=== PATIENT | female | born 1970 | race Hispanic/Latino ===

== ENCOUNTER 2017-02-12 01:43 | Emergency (ER) | payer OTHER, SELFPAY ==
[2017-02-12] MEDS ORDERED: KETOROLAC TROMETHAMINE 30MG/ML ONE (02:56)
[2017-02-12] MEDS ORDERED: DEXAMETHASONE SOD PHOSPHATE 10MG/ML 1ML VIAL ONE (02:56)
== END 2017-02-12 04:22 | disposition home or self-care (01) ==
LOC: EDH 01:43
DX: M65.842 Other synovitis and tenosynovitis, left hand (principal); Z88.1 Allergy status to other antibiotic agents
CPT/HCPCS: 96374; 96375; 99284; J1100; J1885

== ENCOUNTER 2017-02-28 18:06 | Emergency (ER) | payer OTHER, SELFPAY | END 2017-02-28 18:45 | disposition home or self-care (01) | LOC: EDH 18:06 | DX: M25.511 Pain in right shoulder (principal); G89.29 Other chronic pain; Z88.1 Allergy status to other antibiotic agents | CPT/HCPCS: 99281 ==

== ENCOUNTER 2018-02-08 19:32 | Emergency (ER) | payer OTHER, SELFPAY ==
[2018-02-08 21:24] LABS: APPEARANCE,URINE Cloudy (CLEAR); BILIRUBIN,URINE Negative (NEGATIVE); COLOR,URINE Yellow (YELLOW); GLUCOSE, URINE (UA) Negative (NEGATIVE); KETONES,URINE Negative (NEGATIVE); LEUKOCYTE ESTERASE ,URINE Moderate (NEGATIVE); NITRATE,URINE Positive (NEGATIVE); OCCULT BLOOD,URINE Negative (NEGATIVE); PROTEIN,URINE Negative (NEGATIVE); UROBILINOGEN,URINE 0.2 mg/dL (0.2-1.0)
[2018-02-08 21:28] LABS: HCG,QUAL RESULT NEGATIVE (NEGATIVE)
[2018-02-08 21:43] LABS: BACTERIA,URINE Many /HPF (None Seen); RBC,URINE None Seen /HPF (0-1)
[2018-02-08 21:44] LABS: MUCUS,URINE Few LPF (None Seen)
[2018-02-08] MEDS ORDERED: CEFTRIAXONE SODIUM 1 GM ONE (21:52)
[2018-02-08] MEDS ORDERED: LIDOCAINE HCL 1% 20 ML VIAL ONE (21:52)
[2018-02-08] MEDS ORDERED: IBUPROFEN 600 MG TABLET ONE (21:52)
[2018-02-08] MEDS ORDERED: KETOROLAC TROMETHAMINE 60 MG/2 ML VIAL ONE (23:20)
[2018-02-08] MEDS ORDERED: CYCLOBENZAPRINE HCL 10 MG TABLET ONE (23:21)
== END 2018-02-08 23:49 | disposition home or self-care (01) ==
LOC: EDH 19:32
DX: M54.16 Radiculopathy, lumbar region (principal); N39.0 Urinary tract infection, site not specified; Z88.1 Allergy status to other antibiotic agents; Z90.49 Acquired absence of other specified parts of digestive tract; Z98.51 Tubal ligation status
CPT/HCPCS: 81001; 81025; 96372 ×2; 99283; J0696; J1885

== ENCOUNTER 2018-09-26 21:44 | Emergency (ER) | payer OTHER ==
[2018-09-26] MEDS ORDERED: ACETAMINOPHEN EXTRA STRENGTH 500 MG TABLET ONE (22:20)
[2018-09-26] MEDS ORDERED: CYCLOBENZAPRINE HCL 10 MG TABLET ONE (22:21)
[2018-09-26 22:40] LABS: BILIRUBIN,URINE Negative (NEGATIVE); COLOR,URINE Yellow (YELLOW); GLUCOSE, URINE (UA) Negative (NEGATIVE); KETONES,URINE Negative (NEGATIVE); LEUKOCYTE ESTERASE ,URINE Large (NEGATIVE); NITRATE,URINE Positive (NEGATIVE); OCCULT BLOOD,URINE Small (NEGATIVE); PROTEIN,URINE POS 1+ mg/dL (NEGATIVE)
[2018-09-26 22:41] LABS: APPEARANCE,URINE CLOUDY (CLEAR)
[2018-09-26] MEDS ORDERED: LIDOCAINE HCL 2% VISCOUS 15 ML UDCUP ONE (22:50)
[2018-09-26] MEDS ORDERED: MAG HYDROX/AL HYDROX/SIMETH ES 30 ML SUSP UDCUP ONE (22:50)
[2018-09-26] MEDS ORDERED: LIDOCAINE HCL-MPF 1% 2ML VIAL ONE (22:50)
[2018-09-26] MEDS ORDERED: CEFTRIAXONE SODIUM 1 GM ONE (22:51)
[2018-09-26 23:00] LABS: BACTERIA,URINE Moderate /HPF (None Seen); SQUAMOUS EPITHELIAL CELL,UR Few /HPF (0-2); WBC,URINE 51-100 /HPF (0-1)
== END 2018-09-26 23:45 | disposition home or self-care (01) ==
LOC: EDH 21:44
DX: N39.0 Urinary tract infection, site not specified (principal); R51 Headache; Z88.1 Allergy status to other antibiotic agents; Z90.49 Acquired absence of other specified parts of digestive tract; Z98.51 Tubal ligation status
CPT/HCPCS: 81001; 81025; 87088; 96372 ×2; 99284; J0696; J3490

== ENCOUNTER 2019-07-16 12:41 | Inpatient (IN) | payer SELFPAY ==
[~2019-07-16] VITALS: Ht 149.9 cm; Wt 61.7 kg
[2019-07-16 13:17] LABS: BASOPHILS % (AUTO) 0.3 % (0.0-5.0); EOSINOPHILS % (AUTO) 0.1 % (0.0-8.0); HEMATOCRIT 39.3 % (36-48); LYMPHOCYTES % (AUTO) 7.1 % (21.0-51.0); MEAN CORPUSCULAR HEMOGLOBIN 31.9 pg (27.0-33.0); MEAN CORPUSCULAR HGB CONC 33.6 g/dL (32.0-36.0); MEAN CORPUSCULAR VOLUME 94.9 fL (79-99); MONOCYTES % (AUTO) 7.5 % (3.0-13.0); NEUTROPHILS % (AUTO) 84.5 % (40.0-77.0); PLATELET COUNT (AUTO) 223 K/uL (130-400); RED BLOOD CELL COUNT(AUTO) 4.14 MIL/uL (4.00-5.50); RED CELL DISTRIBUTION WIDTH 13.4 % (11.0-15.5); WHITE BLOOD COUNT (AUTO) 15.9 K/uL (4.8-10.8)
[2019-07-16 13:30] LABS: POTASSIUM 3.6 mmol/L (3.5-5.1)
[2019-07-16 13:32] LABS: RAPID GROUP A STREP NEGATIVE (NEGATIVE)
[2019-07-16 13:35] LABS: ALBUMIN 3.4 g/dL (3.5-5.0); BILIRUBIN,TOTAL 0.3 mg/dL (0.2-1.0); TOTAL PROTEIN, SERUM 7.8 g/dL (6.0-8.3)
[2019-07-16 13:52] LABS: APPEARANCE,URINE Cloudy (CLEAR); BILIRUBIN,URINE Negative (NEGATIVE); COLOR,URINE Yellow (YELLOW); GLUCOSE, URINE (UA) Negative (NEGATIVE); KETONES,URINE Negative (NEGATIVE); LEUKOCYTE ESTERASE ,URINE Moderate (NEGATIVE); NITRATE,URINE Negative (NEGATIVE); OCCULT BLOOD,URINE Small (NEGATIVE); PH,URINE 8.5 (5.0-8.0); PROTEIN,URINE POS 1+ mg/dL (NEGATIVE); UROBILINOGEN,URINE 0.2 mg/dL (0.2-1.0)
[2019-07-16 14:00] LABS: HCG,QUAL RESULT NEGATIVE (NEGATIVE)
[2019-07-16 14:06] LABS: BACTERIA,URINE Moderate /HPF (None Seen)
[2019-07-16] MEDS ORDERED: SODIUM CHLORIDE 0.9% 1000ML 1,000 ML IV ONE ×2 (14:09→18:44)
[2019-07-16] MEDS ORDERED: CEFTRIAXONE SODIUM 1 GM ONE (14:09)
[2019-07-16] MEDS ORDERED: IBUPROFEN 600 MG TABLET ONE (14:10)
[2019-07-16] MEDS ORDERED: SODIUM CHLORIDE 0.9% 100 ML IV ONE (14:10)
[2019-07-16] MEDS ORDERED: ACETAMINOPHEN EXTRA STRENGTH 500 MG TABLET ONE (15:17)
[2019-07-16] MEDS ORDERED: HYDRALAZINE HCL 20 MG/ML VIAL IV PRN (17:15)
[2019-07-16] MEDS ORDERED: LACTULOSE 20 GM/30 ML UDCUP PO PRN (17:15)
[2019-07-16] MEDS ORDERED: ONDANSETRON HCL 4 MG/2 ML VIAL IV PRN (17:15)
[2019-07-16] MEDS ORDERED: ZOSYN 3.375GM+NS 50ML 50 ML IV ONE (18:21)
[2019-07-16 19:02] LABS: MAGNESIUM 1.6 mg/dL (1.80-2.40); PHOSPHORUS 2.1 mg/dL (2.5-4.9)
[2019-07-16 19:49] LABS: HEMOGLOBIN A1C 5.1 % (4.0-6.0)
[2019-07-16] MEDS: ZOSYN 3.375GM+NS 50ML 50 ML IV SCH (21:00)
[2019-07-16] MEDS ORDERED: FAMOTIDINE/PF 20 MG/2 ML VIAL IV SCH (21:00)
[2019-07-16] MEDS: OSELTAMIVIR PHOSPHATE 75 MG CAP PO SCH (21:00)
[2019-07-16] MEDS ORDERED: OSELTAMIVIR PHOSPHATE 75 MG CAP ONE (21:12)
[2019-07-16 21:50] VITALS: BP 151/88
[2019-07-16] MEDS: SODIUM CHLORIDE 0.9% 1000ML 1,000 ML IV SCH ×2 (22:11→22:15)
[2019-07-16] MEDS: FAMOTIDINE/PF 20 MG/2 ML VIAL IV SCH (22:17)
[2019-07-16] MEDS: MAGNESIUM 2GM PREMIX 50ML 50 ML IV PRN (22:23)
[2019-07-16] MEDS ORDERED: NAPR-1023 PO (22:40)
[2019-07-17] VITALS: BP 147/87
[2019-07-17] MEDS ORDERED: KETOROLAC TROMETHAMINE 30MG/ML ONE (00:22)
[2019-07-17] MEDS ORDERED: KETOROLAC TROMETHAMINE 30MG/ML IV PRN (00:30)
[2019-07-17] MEDS: SODIUM CHLORIDE 0.9% 1000ML 1,000 ML IV SCH ×2 (02:50→08:11)
[2019-07-17] MEDS: ACETAMINOPHEN 325 MG TAB PO PRN ×2 (03:27→14:35)
[2019-07-17 04:00] VITALS: BP 149/84
[2019-07-17] MEDS: ZOSYN 3.375GM+NS 50ML 50 ML IV SCH ×2 (04:24→13:19)
[2019-07-17] MEDS: MAGNESIUM 2GM PREMIX 50ML 50 ML IV PRN (06:11)
[2019-07-17 07:30] VITALS: BP 141/89
[2019-07-17] MEDS: OSELTAMIVIR PHOSPHATE 75 MG CAP PO SCH ×2 (07:50→21:20)
[2019-07-17] MEDS: FAMOTIDINE/PF 20 MG/2 ML VIAL IV SCH ×2 (07:50→21:20)
[2019-07-17] MEDS: ENOXAPARIN SODIUM 40 MG/0.4 ML SYRINGE SQ SCH (07:51)
[2019-07-17 11:30] VITALS: BP 155/82
[2019-07-17] MEDS ORDERED: SODIUM CHLORIDE 0.9% 1000ML 1,000 ML IV SCH (13:15)
[2019-07-17 13:29] LABS: ALBUMIN 2.6 g/dL (3.5-5.0); BILIRUBIN,TOTAL 0.2 mg/dL (0.2-1.0); CREATININE 0.9 mg/dL (0.5-1.5); TOTAL PROTEIN, SERUM 6.4 g/dL (6.0-8.3)
[2019-07-17] MEDS ORDERED: POTASSIUM CHLORIDE 20 MEQ ERTAB PO ONE (14:09)
[2019-07-17] MEDS ORDERED: POTASSIUM CHLORIDE 20MEQ/100ML 100 ML IV PRN (14:15)
[2019-07-17] MEDS ORDERED: LIDOCAINE HCL-MPF 1% 2ML VIAL IV PRN (14:15)
[2019-07-17] MEDS ORDERED: POTASSIUM CHLORIDE 10% ELIXIR 20 MEQ/15 ML UDCUP PO PRN (14:15)
[2019-07-17] MEDS: POTASSIUM CHLORIDE 20 MEQ ERTAB PO PRN ×3 (14:35→21:20)
[2019-07-17 15:30] VITALS: BP 142/92
[2019-07-17] MEDS ORDERED: HYDROCODONE/ACETAMINOPHEN 10/325 MG TAB PO PRN (17:30)
[2019-07-17] MEDS ORDERED: HYDROMORPHONE 1 MG/1 ML AMP IVP PRN (17:30)
[2019-07-17] MEDS: MEROPENEM 1 GM VIAL IVP SCH (18:23)
--- NOTE | 2019-07-17 19:15 | NUR ---
ASSESSMENT PT RESTING QUIETLY IN ROOM WATCHING TV. CURRENTLY DENIES ANY PAIN OR DISCOMFORT. AAOX4 PLEASANT, COOPERATIVE AND FOLLOWS COMMANDS. DENIES ANY CHEST PAIN OR S.O.B. ASSESSMENT COMPLETED, SEE FLOW SHEET.
[2019-07-17 19:45] VITALS: BP 117/74
[2019-07-18] MEDS: ACETAMINOPHEN 325 MG TAB PO PRN ×2 (00:21→11:34)
[2019-07-18 00:43] VITALS: BP 103/67
[2019-07-18] MEDS: MEROPENEM 1 GM VIAL IVP SCH ×2 (01:09→09:50)
[2019-07-18 04:52] VITALS: BP 95/67
[2019-07-18 05:46] LABS: BASOPHILS % (AUTO) 0.4 % (0.0-5.0); EOSINOPHILS % (AUTO) 1.5 % (0.0-8.0); HEMATOCRIT 31.6 % (36-48); LYMPHOCYTES % (AUTO) 15.7 % (21.0-51.0); MEAN CORPUSCULAR HEMOGLOBIN 31.6 pg (27.0-33.0); MEAN CORPUSCULAR HGB CONC 32.6 g/dL (32.0-36.0); MEAN CORPUSCULAR VOLUME 96.9 fL (79-99); MONOCYTES % (AUTO) 12.2 % (3.0-13.0); NEUTROPHILS % (AUTO) 69.8 % (40.0-77.0); PLATELET COUNT (AUTO) 216 K/uL (130-400); RED BLOOD CELL COUNT(AUTO) 3.26 MIL/uL (4.00-5.50); RED CELL DISTRIBUTION WIDTH 13.6 % (11.0-15.5); WHITE BLOOD COUNT (AUTO) 10.9 K/uL (4.8-10.8)
[2019-07-18 07:30] VITALS: BP 129/84
[2019-07-18 08:42] LABS: MAGNESIUM 1.9 mg/dL (1.80-2.40); POTASSIUM 3.9 mmol/L (3.5-5.1)
[2019-07-18] MEDS: FAMOTIDINE/PF 20 MG/2 ML VIAL IV SCH (09:00)
[2019-07-18] MEDS ORDERED: FAMOTIDINE 20MG TAB 20 MG TAB PO SCH ×2 (09:00→09:02)
[2019-07-18] MEDS: MAGNESIUM 2GM PREMIX 50ML 50 ML IV PRN (09:50)
[2019-07-18] MEDS: ENOXAPARIN SODIUM 40 MG/0.4 ML SYRINGE SQ SCH (09:52)
[2019-07-18] MEDS: OSELTAMIVIR PHOSPHATE 75 MG CAP PO SCH (09:52)
[2019-07-18 12:00] VITALS: BP 145/91
[2019-07-18] MEDS ORDERED: CEFD300C3 PO (14:04)
[2019-07-18] MEDS ORDERED: OSEL75 PO (14:04)
--- NOTE | 2019-07-18 15:30 | NUR ---
PT DISCHARGED PER DR Flex BLACKBURN OUT CATHETER INTACT. VERBALIZES UNDERSTANDING OF DISCHARGE INSTRUCTIONS. PT WILL MAKE AN APPOINTMENT WITH PRIMARY MD BY CALLING HERSELF TOMORROW. VS STABLE TO PRIVATE CAR VIA WHEEL CHAIR
--- NOTE | 2019-07-18 15:49 | NUR ---
PT IS TOLERATING BEING OUT OF BED. HAS AMBULATED FROM BED TO BATHROOM, TO CHAIR BACK TO BATHROOM BACK TO BED WITH GUIDED ASSISTANCE. NO SHORTNESS OF BREATH. PLACED ON 2L NASAL CANNULA DUE TO SPOT SPO2 CHECK OF 84 Addendum: 07/18/19 at 1552 by NILA MAXWELL RN WRONG NOTE, PT NEEDS NO ASSISTANCE TO AMBULATE. ROOM AIR WITH 97%
== END 2019-07-18 15:41 | disposition home or self-care (01) | DRG 871 ==
LOC: EDH 12:41 → EDHIP 12:42 → 2DH 21:34
PROVIDERS: ADMIT Internal Medicine; ATTEND Internal Medicine
DX: A41.9 Sepsis, unspecified organism (principal); J10.00 Influenza due to other identified influenza virus with unspecified type of pneumonia; N30.00 Acute cystitis without hematuria; E86.1 Hypovolemia; B96.20 Unspecified Escherichia coli [E. coli] as the cause of diseases classified elsewhere; E87.6 Hypokalemia; G89.29 Other chronic pain; N20.0 Calculus of kidney; Z20.828 Contact with and (suspected) exposure to other viral communicable diseases; N28.1 Cyst of kidney, acquired; Z79.1 Long term (current) use of non-steroidal anti-inflammatories (NSAID); Z88.1 Allergy status to other antibiotic agents
CPT/HCPCS: 36415; 71045; 74176; 76770; 80053; 81001; 81025; 83036; 83605; 83735; 84100; 84132; 84145; 85025; 87040; 87077; 87088; 87186; 87486; 87581; 87633; 87635; 87798; 87804; 87880; G0378; J0696; J1650; J1885; J2185; J2543; J3475; J3490; J7030

== ENCOUNTER 2019-12-20 18:29 | Inpatient (IN) | payer OTHER, SELFPAY ==
[~2019-12-20] VITALS: Ht 149.9 cm; Wt 65.8 kg
[~2019-12-20 18:29] MED LIST: CEFD300C3 PO; NAPR-1023 PO; OSEL75 PO
[2019-12-20 20:03] LABS: APPEARANCE,URINE CLOUDY (CLEAR); BILIRUBIN,URINE NEGATIVE (NEGATIVE); COLOR,URINE YELLOW (YELLOW); GLUCOSE, URINE (UA) NEGATIVE (NEGATIVE); KETONES,URINE 5 mg/dL (NEGATIVE); LEUKOCYTE ESTERASE ,URINE LARGE (NEGATIVE); NITRATE,URINE POSITIVE (NEGATIVE); OCCULT BLOOD,URINE SMALL (NEGATIVE); PH,URINE 6.5 (5.0-8.0); PROTEIN,URINE NEGATIVE (NEGATIVE); UROBILINOGEN,URINE 0.2 mg/dL (0.2-1.0)
[2019-12-20 20:08] LABS: HCG,QUAL RESULT NEGATIVE (NEGATIVE)
[2019-12-20] MEDS ORDERED: ACETAMINOPHEN EXTRA STRENGTH 500 MG TABLET ONE (20:08)
[2019-12-20] MEDS ORDERED: ZOSYN 3.375GM+NS 50ML 50 ML IV ONE (20:08)
[2019-12-20 20:09] LABS: ABG BASE EXCESS -1.7 mmol/L (-2.0-3.0); ABG HCO3 17.3 mmol/L (21.0-28.0); ABG OXYGEN SATURATION 99.2 % (95.0-99.0); ABG PCO2 19 mmHg (32-45)
[2019-12-20 20:11] LABS: BACTERIA,URINE Few /HPF (None Seen); SQUAMOUS EPITHELIAL CELL,UR Few /HPF (0-2)
[2019-12-20 20:24] LABS: BASOPHILS % (AUTO) 0.4 % (0.0-5.0); EOSINOPHILS % (AUTO) 0.2 % (0.0-8.0); HEMATOCRIT 33.8 % (36-48); MEAN CORPUSCULAR HEMOGLOBIN 31.2 pg (27.0-33.0); MEAN CORPUSCULAR HGB CONC 33.7 g/dL (32.0-36.0); MEAN CORPUSCULAR VOLUME 92.6 fL (79-99); MONOCYTES % (AUTO) 7.6 % (3.0-13.0); PLATELET COUNT (AUTO) 393 K/uL (130-400); RED BLOOD CELL COUNT(AUTO) 3.65 MIL/uL (4.00-5.50); RED CELL DISTRIBUTION WIDTH 12.7 % (11.0-15.5); WHITE BLOOD COUNT (AUTO) 26.3 K/uL (4.8-10.8)
[2019-12-20 20:46] LABS: CREATININE 1.1 mg/dL (0.5-1.5); POTASSIUM 3.1 mmol/L (3.5-5.1)
[2019-12-20 20:48] LABS: B-TYPE NATRIURETIC PEPTIDE 46 pg/mL (0-100)
[2019-12-20 20:49] LABS: INR 1.03 (0.85-1.15); PARTIAL THROMBOPLASTIN TIME 29.4 SEC (26.3-35.5); PROTHROMBIN TIME 11.1 SEC (9.6-11.6)
[2019-12-20 20:51] LABS: ALBUMIN 3.4 g/dL (3.5-5.0); BILIRUBIN,TOTAL 0.6 mg/dL (0.2-1.0); TOTAL PROTEIN, SERUM 7.8 g/dL (6.0-8.3)
[2019-12-20] MEDS ORDERED: IOHEXOL-350 75 ML VIAL IV ONE (20:52)
[2019-12-20] MEDS ORDERED: ONDANSETRON HCL 4 MG/2 ML VIAL ONE (22:21)
[2019-12-20] MEDS ORDERED: MORPHINE SULFATE 4 MG/1ML SYG ONE (22:21)
[2019-12-20] MEDS ORDERED: ONDANSETRON HCL 4 MG/2 ML VIAL IV PRN (23:15)
[2019-12-20] MEDS ORDERED: MORPHINE SULFATE 4 MG/1ML SYG IV PRN (23:15)
[2019-12-20] MEDS ORDERED: HYDRALAZINE HCL 20 MG/ML VIAL IV PRN (23:15)
[2019-12-20] MEDS ORDERED: ACETAMINOPHEN 325 MG TAB PO PRN ×2 (23:15)
[2019-12-20] MEDS ORDERED: LACTULOSE 20 GM/30 ML UDCUP PO PRN (23:15)
[2019-12-20] MEDS: SODIUM CHLORIDE 0.9% 1000ML 1,000 ML IV SCH (23:15)
[2019-12-20] MEDS ORDERED: LIDOCAINE HCL-MPF 1% 2ML VIAL IV PRN (23:45)
[2019-12-20] MEDS ORDERED: POTASSIUM CHLORIDE 10MEQ/100ML 100 ML IV PRN (23:45)
[2019-12-21] MEDS: ZOSYN 3.375GM+NS 50ML 50 ML IV SCH ×3 (05:00→20:19)
[2019-12-21 05:33] LABS: BASOPHILS % (AUTO) 0.4 % (0.0-5.0); EOSINOPHILS % (AUTO) 0.5 % (0.0-8.0); HEMATOCRIT 30.8 % (36-48); LYMPHOCYTES % (AUTO) 7.4 % (21.0-51.0); MEAN CORPUSCULAR HEMOGLOBIN 31.3 pg (27.0-33.0); MEAN CORPUSCULAR HGB CONC 33.4 g/dL (32.0-36.0); MEAN CORPUSCULAR VOLUME 93.6 fL (79-99); MONOCYTES % (AUTO) 7.5 % (3.0-13.0); NEUTROPHILS % (AUTO) 83.6 % (40.0-77.0); PLATELET COUNT (AUTO) 346 K/uL (130-400); RED BLOOD CELL COUNT(AUTO) 3.29 MIL/uL (4.00-5.50); RED CELL DISTRIBUTION WIDTH 12.7 % (11.0-15.5); WHITE BLOOD COUNT (AUTO) 21.8 K/uL (4.8-10.8)
[2019-12-21 05:51] LABS: CREATININE 0.9 mg/dL (0.5-1.5); POTASSIUM 3.1 mmol/L (3.5-5.1)
[2019-12-21] MEDS ORDERED: ZOSYN 3.375GM+NS 50ML 50 ML IV ONE (07:04)
[2019-12-21] MEDS ORDERED: LIDOCAINE HCL-MPF 1% 2ML VIAL ONE ×2 (07:39→12:54)
[2019-12-21] MEDS ORDERED: POTASSIUM CHLORIDE 10MEQ/100ML 100 ML IV ONE ×2 (07:39→12:54)
[2019-12-21] MEDS ORDERED: FAMOTIDINE/PF 20 MG/2 ML VIAL IV ONE (07:51)
[2019-12-21] MEDS ORDERED: MORPHINE SULFATE 4 MG/1ML SYG ONE ×2 (08:13→13:24)
[2019-12-21] MEDS ORDERED: ONDANSETRON HCL 4 MG/2 ML VIAL ONE (08:13)
[2019-12-21] MEDS ORDERED: SODIUM CHLORIDE 0.9% 1000ML 1,000 ML IV ONE (08:41)
[2019-12-21] MEDS: FAMOTIDINE/PF 20 MG/2 ML VIAL IV SCH ×2 (09:00→20:19)
[2019-12-21] MEDS ORDERED: BISACODYL 10 MG SUPP.RECT RC SCH ×2 (09:15→10:30)
[2019-12-21] MEDS: SODIUM CHLORIDE 0.9% 1000ML 1,000 ML IV SCH ×2 (09:15→19:15)
[2019-12-21] MEDS ORDERED: PEG 3350/NA SULF,BICARB,CL/KCL 4000 ML SOLN ONE (15:35)
[2019-12-21 16:00] VITALS: BP 136/77
--- NOTE | 2019-12-21 16:07 | NUR ---
YUE NOTE/IA UNABLE TO MET WITH PATIENT IN ROOM, NEXT OF KIN CALLED, SHAI CARRILLO. PER DAUGHTER, PATIENT LIVES WITH HER 2 ADULT DAUGHTERS AND 1 ADULT NEPHEW, IS INDEPENDENT WITH ADLS, NO USE OF DME, DRIVES AND FEELS SAFE FOR PATIENT TO RETURN HOME ONCE DISCHARGED. Addendum: 12/21/19 at 1609 by YAEL FALL RN CM Amended: Links added.
[2019-12-21 18:15] LABS: CREATININE 0.8 mg/dL (0.5-1.5); POTASSIUM 3.3 mmol/L (3.5-5.1)
[2019-12-21 20:00] VITALS: BP 123/75
[2019-12-21] MEDS: MORPHINE SULFATE 4 MG/1ML SYG IV PRN (20:20)
[2019-12-22] VITALS: BP 107/68
[2019-12-22] MEDS: MORPHINE SULFATE 4 MG/1ML SYG IV PRN ×4 (01:44→20:18)
[2019-12-22 04:00] VITALS: BP 108/59
[2019-12-22] MEDS ORDERED: KETOROLAC TROMETHAMINE 30MG/ML ONE ×2 (05:13→23:25)
[2019-12-22] MEDS: ZOSYN 3.375GM+NS 50ML 50 ML IV SCH ×3 (05:14→20:17)
[2019-12-22] MEDS: SODIUM CHLORIDE 0.9% 1000ML 1,000 ML IV SCH ×2 (05:15→15:15)
[2019-12-22] MEDS ORDERED: IOHEXOL-350 75 ML VIAL IV ONE (06:56)
[2019-12-22 08:30] VITALS: BP 104/68
[2019-12-22] MEDS ORDERED: POTASSIUM CHLORIDE 20MEQ/100ML 100 ML IV PRN ×2 (09:15)
[2019-12-22] MEDS ORDERED: POTASSIUM CHLORIDE 10% ELIXIR 20 MEQ/15 ML UDCUP PO PRN (09:15)
[2019-12-22 09:34] LABS: BASOPHILS % (AUTO) 0.6 % (0.0-5.0); EOSINOPHILS % (AUTO) 1.1 % (0.0-8.0); HEMATOCRIT 29.4 % (36-48); LYMPHOCYTES % (AUTO) 14.7 % (21.0-51.0); MEAN CORPUSCULAR HEMOGLOBIN 31.6 pg (27.0-33.0); MEAN CORPUSCULAR HGB CONC 32.3 g/dL (32.0-36.0); MEAN CORPUSCULAR VOLUME 97.7 fL (79-99); MONOCYTES % (AUTO) 10.5 % (3.0-13.0); NEUTROPHILS % (AUTO) 72.7 % (40.0-77.0); PLATELET COUNT (AUTO) 271 K/uL (130-400); RED BLOOD CELL COUNT(AUTO) 3.01 MIL/uL (4.00-5.50); RED CELL DISTRIBUTION WIDTH 13.2 % (11.0-15.5); WHITE BLOOD COUNT (AUTO) 11.5 K/uL (4.8-10.8)
[2019-12-22 09:57] LABS: ALBUMIN 2.6 g/dL (3.5-5.0); BILIRUBIN,TOTAL 0.4 mg/dL (0.2-1.0); CREATININE 0.9 mg/dL (0.5-1.5); POTASSIUM 3.3 mmol/L (3.5-5.1); TOTAL PROTEIN, SERUM 6.5 g/dL (6.0-8.3)
[2019-12-22] MEDS: LACTULOSE 20 GM/30 ML UDCUP PO SCH ×3 (11:07→22:44)
[2019-12-22] MEDS: POTASSIUM CHLORIDE 20 MEQ ERTAB PO PRN ×3 (11:08→16:21)
[2019-12-22] MEDS: FAMOTIDINE/PF 20 MG/2 ML VIAL IV SCH ×2 (11:09→20:17)
[2019-12-22 11:51] VITALS: BP 117/73
--- NOTE | 2019-12-22 12:39 | NUR ---
IVP w/wo tomograms results show 7.5 mm stone in the proximal rt ureter w moderate to high grade degree of obstruction stone has not advanced compared to previous CT. Called Dr. Sierra's office to report, rec'd instructions to fax. Results faxed to Dr. Sierra's office, attn Livia.
--- NOTE | 2019-12-22 13:30 | NUR ---
Called to cardiac cath lab manager to notify of order for nephrostomy tube placement. Per Minal, radiologist cannot perform until tomorrow am due to pt not being NPO status. Scheduled with central scheduling for tomorrow am, NPO orders placed.
--- NOTE | 2019-12-22 15:06 | NUR ---
Notified Dr. Sierra's office staff member Livia that per cardiac cath lab technologist, nephrostomy tube will not be done until am, she will pass message to Dr. Sierra.
[2019-12-22 17:12] VITALS: BP 111/71
[2019-12-22 20:00] VITALS: BP 130/88
[2019-12-23] VITALS (12 sets, daily range): BP systolic 38–147; BP diastolic 63–88
[2019-12-23] MEDS: SODIUM CHLORIDE 0.9% 1000ML 1,000 ML IV SCH ×3 (01:15→20:54)
[2019-12-23 04:53] LABS: BASOPHILS % (AUTO) 0.7 % (0.0-5.0); EOSINOPHILS % (AUTO) 3.5 % (0.0-8.0); HEMATOCRIT 28.5 % (36-48); LYMPHOCYTES % (AUTO) 22.2 % (21.0-51.0); MEAN CORPUSCULAR HEMOGLOBIN 30.7 pg (27.0-33.0); MEAN CORPUSCULAR HGB CONC 31.9 g/dL (32.0-36.0); MEAN CORPUSCULAR VOLUME 96.3 fL (79-99); MONOCYTES % (AUTO) 11.4 % (3.0-13.0); NEUTROPHILS % (AUTO) 61.9 % (40.0-77.0); PLATELET COUNT (AUTO) 302 K/uL (130-400); RED BLOOD CELL COUNT(AUTO) 2.96 MIL/uL (4.00-5.50); RED CELL DISTRIBUTION WIDTH 12.9 % (11.0-15.5); WHITE BLOOD COUNT (AUTO) 8.8 K/uL (4.8-10.8)
[2019-12-23] MEDS: LACTULOSE 20 GM/30 ML UDCUP PO SCH ×4 (05:00→23:00)
[2019-12-23 05:13] LABS: ALBUMIN 2.5 g/dL (3.5-5.0); BILIRUBIN,TOTAL 0.3 mg/dL (0.2-1.0); CREATININE 0.8 mg/dL (0.5-1.5); POTASSIUM 3.8 mmol/L (3.5-5.1); TOTAL PROTEIN, SERUM 6.4 g/dL (6.0-8.3)
[2019-12-23] MEDS: ZOSYN 3.375GM+NS 50ML 50 ML IV SCH ×3 (07:02→20:54)
[2019-12-23] MEDS: FAMOTIDINE/PF 20 MG/2 ML VIAL IV SCH ×2 (09:40→20:54)
[2019-12-23] MEDS: MORPHINE SULFATE 4 MG/1ML SYG IV PRN ×3 (09:41→20:54)
[2019-12-23] MEDS ORDERED: LIDOCAINE HCL 1% MDV 50ML VIAL ONE (15:17)
[2019-12-23] MEDS ORDERED: IODIXANOL 320 MG/ML 100 ML VIAL ONE (16:01)
[2019-12-23] MEDS ORDERED: FENTANYL CITRATE PF 50 MCG/1 ML 2ML VIAL ONE (16:12)
[2019-12-23] MEDS ORDERED: MIDAZOLAM HCL 1 MG/ML 2ML VIAL ONE (16:12)
--- NOTE | 2019-12-23 17:06 | NUR ---
STATUS POST PROCEDURE. DRESSING ON RT BACK CLEAN AND INTACT TO DRAIN . NO SIGNS OF BLEEDING . CONT ON POST OP VITALS
[2019-12-23] MEDS: KETOROLAC TROMETHAMINE 15MG/ML IV PRN (17:49)
[2019-12-24] MEDS: MORPHINE SULFATE 4 MG/1ML SYG IV PRN ×3 (02:37→19:49)
[2019-12-24 03:57] VITALS: BP 108/73
[2019-12-24] MEDS: ZOSYN 3.375GM+NS 50ML 50 ML IV SCH ×3 (04:51→19:53)
[2019-12-24 04:58] LABS: BASOPHILS % (AUTO) 0.9 % (0.0-5.0); EOSINOPHILS % (AUTO) 3.4 % (0.0-8.0); HEMATOCRIT 28.1 % (36-48); LYMPHOCYTES % (AUTO) 18.9 % (21.0-51.0); MEAN CORPUSCULAR HEMOGLOBIN 31.5 pg (27.0-33.0); MEAN CORPUSCULAR HGB CONC 33.1 g/dL (32.0-36.0); MEAN CORPUSCULAR VOLUME 95.3 fL (79-99); MONOCYTES % (AUTO) 8.7 % (3.0-13.0); NEUTROPHILS % (AUTO) 67.7 % (40.0-77.0); PLATELET COUNT (AUTO) 305 K/uL (130-400); RED BLOOD CELL COUNT(AUTO) 2.95 MIL/uL (4.00-5.50); RED CELL DISTRIBUTION WIDTH 12.9 % (11.0-15.5); WHITE BLOOD COUNT (AUTO) 7.9 K/uL (4.8-10.8)
[2019-12-24] MEDS: LACTULOSE 20 GM/30 ML UDCUP PO SCH ×4 (05:00→22:12)
[2019-12-24 05:18] LABS: ALBUMIN 2.4 g/dL (3.5-5.0); BILIRUBIN,TOTAL 0.3 mg/dL (0.2-1.0); CREATININE 0.7 mg/dL (0.5-1.5); POTASSIUM 3.5 mmol/L (3.5-5.1); TOTAL PROTEIN, SERUM 6.3 g/dL (6.0-8.3)
[2019-12-24] MEDS: SODIUM CHLORIDE 0.9% 1000ML 1,000 ML IV SCH ×2 (07:15→19:54)
[2019-12-24 08:00] VITALS: BP 130/74
[2019-12-24] MEDS: FAMOTIDINE/PF 20 MG/2 ML VIAL IV SCH ×2 (08:39→19:49)
[2019-12-24 11:46] VITALS: BP 106/81
[2019-12-24] MEDS: KETOROLAC TROMETHAMINE 15MG/ML IV PRN (13:01)
[2019-12-24 16:00] VITALS: BP 159/87
[2019-12-24 19:40] VITALS: BP 130/80
[2019-12-24 23:45] VITALS: BP 120/76
[2019-12-25] MEDS: MORPHINE SULFATE 4 MG/1ML SYG IV PRN (01:08)
[2019-12-25 04:00] VITALS: BP 118/80
[2019-12-25] MEDS: SODIUM CHLORIDE 0.9% 1000ML 1,000 ML IV SCH (04:07)
[2019-12-25] MEDS: ZOSYN 3.375GM+NS 50ML 50 ML IV SCH (04:07)
[2019-12-25] MEDS: KETOROLAC TROMETHAMINE 15MG/ML IV PRN ×2 (04:18→10:56)
[2019-12-25] MEDS: LACTULOSE 20 GM/30 ML UDCUP PO SCH ×2 (04:18→10:58)
[2019-12-25 05:48] LABS: BASOPHILS % (AUTO) 0.8 % (0.0-5.0); EOSINOPHILS % (AUTO) 3.8 % (0.0-8.0); HEMATOCRIT 30.7 % (36-48); LYMPHOCYTES % (AUTO) 24.4 % (21.0-51.0); MEAN CORPUSCULAR HEMOGLOBIN 31.1 pg (27.0-33.0); MEAN CORPUSCULAR HGB CONC 32.9 g/dL (32.0-36.0); MEAN CORPUSCULAR VOLUME 94.5 fL (79-99); NEUTROPHILS % (AUTO) 57.7 % (40.0-77.0); PLATELET COUNT (AUTO) 366 K/uL (130-400); RED BLOOD CELL COUNT(AUTO) 3.25 MIL/uL (4.00-5.50); RED CELL DISTRIBUTION WIDTH 12.6 % (11.0-15.5); WHITE BLOOD COUNT (AUTO) 7.1 K/uL (4.8-10.8)
[2019-12-25 06:13] LABS: ALBUMIN 2.7 g/dL (3.5-5.0); BILIRUBIN,TOTAL 0.2 mg/dL (0.2-1.0); CREATININE 0.9 mg/dL (0.5-1.5); POTASSIUM 3.5 mmol/L (3.5-5.1); TOTAL PROTEIN, SERUM 6.9 g/dL (6.0-8.3)
[2019-12-25 08:26] VITALS: BP 101/65
[2019-12-25] MEDS: FAMOTIDINE/PF 20 MG/2 ML VIAL IV SCH (09:04)
[2019-12-25 11:07] VITALS: BP 109/69
[2019-12-25] MEDS ORDERED: KETO10TA2 PO (12:23)
[2019-12-25] MEDS ORDERED: LEVO750T46 PO (12:24)
--- NOTE | 2019-12-25 14:48 | NUR ---
PT AND DAUGHTER STATED UNDERSTANDING OF ALL D/C INSTRUCTIONS ON AFTER CARE FOR A NEPHROSTOMY TUBE PLACEMENT AND HAVINB HYDRONEPHROSIS--INCLUDING--HOW TO EMPTY DRAIN, SIGNS AND SYMPTOMS OF INFECTION TO WATCH FOR AND REPORT TO MD; I DID NOT GIVE PT A LIST OF LOCAL FAMILY PHYSICIANS BECAUSE SHE STATED SHE ALREADY HAD A DR. DR BETSY SUMMERS. IV ACCESS REMOVED.
== END 2019-12-25 15:00 | disposition home or self-care (01) | DRG 690 ==
LOC: EDH 18:29 → EDHIP 18:30 → 3CH 12-21 15:03
PROVIDERS: ADMIT Internal Medicine; ATTEND Internal Medicine
PROC: 0T9030Z Drainage of Right Kidney with Drainage Device, Percutaneous Approach (ICD-10-PCS; principal; 2019-12-23)
DX: N13.6 Pyonephrosis (principal); E87.3 Alkalosis; Z16.24 Resistance to multiple antibiotics; K56.609 Unspecified intestinal obstruction, unspecified as to partial versus complete obstruction; K52.9 Noninfective gastroenteritis and colitis, unspecified; E87.6 Hypokalemia; D64.9 Anemia, unspecified; K59.00 Constipation, unspecified; K76.0 Fatty (change of) liver, not elsewhere classified; M06.9 Rheumatoid arthritis, unspecified; R53.81 Other malaise; Z82.3 Family history of stroke; Z83.3 Family history of diabetes mellitus; Z82.49 Family history of ischemic heart disease and other diseases of the circulatory system; Z88.1 Allergy status to other antibiotic agents
CPT/HCPCS: 10030; 36415; 36600; 50432; 71045; 74018; 74177; 74400; 76775; 80048; 80053; 81001; 81025; 82550; 82803; 83605; 83690; 83735; 83880; 83883; 83970; 84145; 84484; 85025; 85610; 85730; 86334; 87040; 87077; 87088; 87186; 93005; 99156; 99157; C1769; C1894; G0378; J1644; J1885; J2250; J2270; J2405; J2543; J3010; J3490; J7030; Q9967

== ENCOUNTER 2020-01-12 14:56 | Emergency (ER) | payer OTHER ==
[~2020-01-12 14:56] MED LIST changes: -CEFD300C3 PO; +KETO10TA2 PO; +LEVO750T46 PO; -NAPR-1023 PO; -OSEL75 PO
[2020-01-12 15:34] LABS: EOSINOPHILS % (AUTO) 4.2 % (0.0-8.0); HEMATOCRIT 35.4 % (36-48); LYMPHOCYTES % (AUTO) 26.2 % (21.0-51.0); MEAN CORPUSCULAR HEMOGLOBIN 30.6 pg (27.0-33.0); MEAN CORPUSCULAR HGB CONC 32.2 g/dL (32.0-36.0); MEAN CORPUSCULAR VOLUME 95.2 fL (79-99); MONOCYTES % (AUTO) 5.7 % (3.0-13.0); NEUTROPHILS % (AUTO) 62.8 % (40.0-77.0); PLATELET COUNT (AUTO) 323 K/uL (130-400); RED BLOOD CELL COUNT(AUTO) 3.72 MIL/uL (4.00-5.50); RED CELL DISTRIBUTION WIDTH 12.8 % (11.0-15.5); WHITE BLOOD COUNT (AUTO) 8.4 K/uL (4.8-10.8)
[2020-01-12 15:53] LABS: ALBUMIN 3.6 g/dL (3.5-5.0); BILIRUBIN,TOTAL 0.2 mg/dL (0.2-1.0); INR 0.99 (0.85-1.15); PARTIAL THROMBOPLASTIN TIME 26.8 SEC (26.3-35.5); PROTHROMBIN TIME 10.7 SEC (9.6-11.6); TOTAL PROTEIN, SERUM 7.5 g/dL (6.0-8.3)
[2020-01-12 15:56] LABS: APPEARANCE,URINE Clear (CLEAR); BILIRUBIN,URINE Negative (NEGATIVE); COLOR,URINE Yellow (YELLOW); GLUCOSE, URINE (UA) Negative (NEGATIVE); KETONES,URINE Negative (NEGATIVE); LEUKOCYTE ESTERASE ,URINE Large (NEGATIVE); NITRATE,URINE Negative (NEGATIVE); OCCULT BLOOD,URINE Trace (NEGATIVE); PROTEIN,URINE Negative (NEGATIVE); UROBILINOGEN,URINE 0.2 mg/dL (0.2-1.0)
[2020-01-12 16:09] LABS: BACTERIA,URINE Rare /HPF (None Seen); SQUAMOUS EPITHELIAL CELL,UR Few /HPF (0-2)
[2020-01-12 16:10] LABS: TRANSITIONAL EPI CELLS,URINE Few /HPF (None Seen)
[2020-01-12] MEDS ORDERED: KETOROLAC TROMETHAMINE 30MG/ML ONE (18:15)
== END 2020-01-12 19:12 | disposition home or self-care (01) ==
LOC: EDH 14:56
DX: T83.84XA Pain due to genitourinary prosthetic devices, implants and grafts, initial encounter (principal); N20.1 Calculus of ureter; Z79.899 Other long term (current) drug therapy; Z88.1 Allergy status to other antibiotic agents
CPT/HCPCS: 36415; 74176; 80053; 81001; 85025; 85610; 85730; 87088; 96372; 99284; J1885

== ENCOUNTER 2020-02-08 12:22 | Day surgery (SDC) | payer MEDICAID ==
[2020-02-02 14:48] LABS: HEMATOCRIT 33.9 % (36-48); MEAN CORPUSCULAR HEMOGLOBIN 30.5 pg (27.0-33.0); MEAN CORPUSCULAR HGB CONC 32.4 g/dL (32.0-36.0); MEAN CORPUSCULAR VOLUME 93.9 fL (79-99); RED BLOOD CELL COUNT(AUTO) 3.61 MIL/uL (4.00-5.50); RED CELL DISTRIBUTION WIDTH 13.1 % (11.0-15.5); WHITE BLOOD COUNT (AUTO) 7.6 K/uL (4.8-10.8)
[2020-02-02 15:06] LABS: INR 1.02 (0.85-1.15); PROTHROMBIN TIME 10.9 SEC (9.6-11.6)
[2020-02-02 15:07] LABS: ALBUMIN 3.5 g/dL (3.5-5.0); BILIRUBIN,TOTAL 0.3 mg/dL (0.2-1.0); CREATININE 0.9 mg/dL (0.5-1.5); POTASSIUM 3.4 mmol/L (3.5-5.1); TOTAL PROTEIN, SERUM 7.4 g/dL (6.0-8.3)
[2020-02-02 15:08] LABS: PARTIAL THROMBOPLASTIN TIME 26.5 SEC (26.3-35.5)
[2020-02-02 15:11] LABS: BILIRUBIN,URINE Negative (NEGATIVE); COLOR,URINE Yellow (YELLOW); GLUCOSE, URINE (UA) Negative (NEGATIVE); KETONES,URINE Negative (NEGATIVE); LEUKOCYTE ESTERASE ,URINE Large (NEGATIVE); NITRATE,URINE Negative (NEGATIVE); OCCULT BLOOD,URINE Large (NEGATIVE); PH,URINE 6.5 (5.0-8.0); PROTEIN,URINE POS 2+ mg/dL (NEGATIVE); UROBILINOGEN,URINE 0.2 mg/dL (0.2-1.0)
[2020-02-02 15:32] LABS: APPEARANCE,URINE CLOUDY (CLEAR)
[2020-02-02 16:41] LABS: BACTERIA,URINE Few /HPF (None Seen); YEAST,URINE BUDDING Few /HPF (None Seen)
[2020-02-02 16:42] LABS: CALCIUM OXALATE CRYSTALS,UR Few /LPF (None Seen)
[2020-02-02 16:44] LABS: CALCIUM PHOSPHATE CRYSTALS,UR Few /LPF (None Seen); SQUAMOUS EPITHELIAL CELL,UR Rare /HPF (0-2)
[2020-02-07 10:21] VITALS: BP 133/77
[2020-02-08] VITALS (14 sets, daily range): BP systolic 108–176; BP diastolic 80–119
[~2020-02-08] VITALS: Ht 149.9 cm; Wt 60.4 kg
[~2020-02-08 12:22] MED LIST changes: +ACET1TAB25 PO; +IBUP-2077 PO; -KETO10TA2 PO; +LACTATED RINGERS 1000ML 1,000 ML IV SCH; -LEVO750T46 PO; +OXYB5TAB15 PO; +ZOSYN 3.375GM+NS 50ML 50 ML IV SCH; +ZOSYN IV
[2020-02-08] MEDS ORDERED: SUCCINYLCHOLINE 200MG/10ML SYR ONE (13:35)
[2020-02-08] MEDS ORDERED: LIDOCAINE PF 2% 5ML ABBOJECT ONE (13:35)
[2020-02-08] MEDS ORDERED: ROCURONIUM 10MG/1ML SYR 10 MG/ML ML ONE (13:36)
[2020-02-08] MEDS ORDERED: PROPOFOL 10 MG/ML 20ML VIAL IV ONE ×2 (13:36→16:03)
[2020-02-08] MEDS ORDERED: FENTANYL CITRATE PF 50 MCG/1 ML 2ML VIAL ONE ×2 (13:36→16:07)
[2020-02-08] MEDS ORDERED: ZOSY3375FZ IV (13:45)
[2020-02-08] MEDS ORDERED: MIDAZOLAM HCL 1 MG/ML 2ML VIAL ONE (14:19)
[2020-02-08] MEDS ORDERED: DEXAMETHASONE SOD PHOSPHATE 10MG/ML 1ML VIAL ONE (15:38)
[2020-02-08] MEDS ORDERED: MEPERIDINE-PF 25 MG/ML SYG ONE (16:55)
[2020-02-08] MEDS ORDERED: KETOROLAC TROMETHAMINE 30MG/ML ONE (17:05)
== END 2020-02-08 18:23 | disposition home or self-care (01) ==
LOC: DAH 12:22
PROVIDERS: ATTEND Urology
DX: N20.2 Calculus of kidney with calculus of ureter (principal); Z20.828 Contact with and (suspected) exposure to other viral communicable diseases; Z88.8 Allergy status to other drugs, medicaments and biological substances; Z88.2 Allergy status to sulfonamides; Z90.49 Acquired absence of other specified parts of digestive tract; Z98.51 Tubal ligation status; Z98.890 Other specified postprocedural states; Z79.01 Long term (current) use of anticoagulants; Z79.899 Other long term (current) drug therapy
CPT/HCPCS: 36415; 50590; 71046; 74018; 76100; 80053; 81001; 85027; 85610; 85730; 87088; 93005; A4215; A4221; A4222; A4223 ×3; A4600; A4663; C9803; J0330; J1100; J1885; J2001; J2175; J2250; J2704 ×2; J3010 ×2; J7120 ×2; U0003; J2543

== ENCOUNTER 2020-02-16 13:37 | Inpatient (IN) | payer MEDICAID ==
[~2020-02-16] VITALS: Ht 149.9 cm; Wt 60.4 kg
[~2020-02-16 13:37] MED LIST changes: -LACTATED RINGERS 1000ML 1,000 ML IV SCH; +ZOSY3375FZ IV; -ZOSYN 3.375GM+NS 50ML 50 ML IV SCH; -ZOSYN IV
[2020-02-16] MEDS ORDERED: CEFTRIAXONE 1G VIAL ONE (14:22)
[2020-02-16] MEDS ORDERED: KETOROLAC 30MG VIAL (30MG/ML) ONE (14:24)
[2020-02-16] MEDS ORDERED: ACETAMINOPHEN 325 MG TAB ONE (14:24)
[2020-02-16] MEDS ORDERED: MORPHINE 4 MG SYG ONE (14:24)
[2020-02-16] MEDS ORDERED: 0.9%NACL 50ML 50 ML IV ONE (14:25)
[2020-02-16 14:35] LABS: BASOPHILS % (AUTO) 0.7 % (0.0-5.0); EOSINOPHILS % (AUTO) 3.3 % (0.0-8.0); HEMATOCRIT 34.6 % (36-48); LYMPHOCYTES % (AUTO) 10.1 % (21.0-51.0); MEAN CORPUSCULAR HGB CONC 34.4 g/dL (32.0-36.0); MEAN CORPUSCULAR VOLUME 90.1 fL (79-99); MONOCYTES % (AUTO) 6.8 % (3.0-13.0); NEUTROPHILS % (AUTO) 78.8 % (40.0-77.0); PLATELET COUNT (AUTO) 274 K/uL (130-400); RED BLOOD CELL COUNT(AUTO) 3.84 MIL/uL (4.00-5.50); RED CELL DISTRIBUTION WIDTH 12.8 % (11.0-15.5); WHITE BLOOD COUNT (AUTO) 13.5 K/uL (4.8-10.8)
[2020-02-16] MEDS ORDERED: 0.9%NACL 1000ML 1,000 ML IV ONE ×2 (14:42→18:27)
[2020-02-16] MEDS ORDERED: ONDANSETRON 4MG INJ ONE ×2 (14:43→22:06)
[2020-02-16 15:02] LABS: ALBUMIN 3.5 g/dL (3.5-5.0); BILIRUBIN,TOTAL 0.2 mg/dL (0.2-1.0); CREATININE 0.8 mg/dL (0.5-1.5); TOTAL PROTEIN, SERUM 7.1 g/dL (6.0-8.3)
[2020-02-16 15:09] LABS: POTASSIUM 2.9 mmol/L (3.5-5.1)
[2020-02-16 17:25] LABS: APPEARANCE,URINE Clear (CLEAR); BILIRUBIN,URINE Negative (NEGATIVE); COLOR,URINE Yellow (YELLOW); GLUCOSE, URINE (UA) Negative (NEGATIVE); KETONES,URINE Negative (NEGATIVE); LEUKOCYTE ESTERASE ,URINE Moderate (NEGATIVE); NITRATE,URINE Negative (NEGATIVE); OCCULT BLOOD,URINE Moderate (NEGATIVE); PROTEIN,URINE Negative (NEGATIVE); UROBILINOGEN,URINE 0.2 mg/dL (0.2-1.0)
[2020-02-16 17:29] LABS: HCG,QUAL RESULT NEGATIVE (NEGATIVE)
[2020-02-16 17:41] LABS: BACTERIA,URINE Few /HPF (None Seen)
[2020-02-16 17:42] LABS: SQUAMOUS EPITHELIAL CELL,UR None Seen /HPF (0-2)
[2020-02-16] MEDS ORDERED: ACETAMINOPHEN 325 MG TAB PO PRN (18:15)
[2020-02-16] MEDS ORDERED: CEFTRIAXONE 1G VIAL IVP SCH (18:15)
[2020-02-16] MEDS: 0.9%NACL 1000ML 1,000 ML IV SCH (18:15)
[2020-02-16] MEDS ORDERED: MORPHINE 2 MG SYG ONE ×2 (18:28→22:07)
[2020-02-16] MEDS ORDERED: FAMOTIDINE 20MG VIAL IV ONE (20:50)
[2020-02-16] MEDS: FAMOTIDINE 20MG TAB PO SCH (21:00)
[2020-02-17] VITALS (11 sets, daily range): BP systolic 119–168; BP diastolic 79–99
[2020-02-17] MEDS ORDERED: MORPHINE 2 MG SYG ONE (03:36)
[2020-02-17] MEDS ORDERED: ONDANSETRON 4MG INJ ONE (03:36)
[2020-02-17 06:24] LABS: BASOPHILS % (AUTO) 0.5 % (0.0-5.0); HEMATOCRIT 31.1 % (36-48); LYMPHOCYTES % (AUTO) 9.1 % (21.0-51.0); MEAN CORPUSCULAR HEMOGLOBIN 30.6 pg (27.0-33.0); MEAN CORPUSCULAR HGB CONC 33.8 g/dL (32.0-36.0); MEAN CORPUSCULAR VOLUME 90.7 fL (79-99); MONOCYTES % (AUTO) 7.5 % (3.0-13.0); NEUTROPHILS % (AUTO) 81.5 % (40.0-77.0); PLATELET COUNT (AUTO) 215 K/uL (130-400); RED BLOOD CELL COUNT(AUTO) 3.43 MIL/uL (4.00-5.50); RED CELL DISTRIBUTION WIDTH 12.9 % (11.0-15.5); WHITE BLOOD COUNT (AUTO) 15.7 K/uL (4.8-10.8)
[2020-02-17 06:37] LABS: CREATININE 1.3 mg/dL (0.5-1.5)
[2020-02-17 06:45] LABS: POTASSIUM 2.9 mmol/L (3.5-5.1)
[2020-02-17] MEDS: 0.9%NACL 1000ML 1,000 ML IV SCH (07:35)
[2020-02-17] MEDS: MORPHINE 2 MG SYG IVP PRN ×3 (08:40→21:20)
[2020-02-17] MEDS: FAMOTIDINE 20MG TAB PO SCH ×2 (08:41→20:56)
[2020-02-17] MEDS ORDERED: POTASSIUM CHLORIDE 10% ELIXIR 20 MEQ/15 ML UDCUP PO PRN ×2 (12:00→12:15)
[2020-02-17] MEDS ORDERED: POTASSIUM CHLORIDE 20MEQ/100ML 100 ML IV PRN ×2 (12:00→12:15)
[2020-02-17] MEDS ORDERED: KCL 20 MEQ ERTAB PO PRN (12:15)
[2020-02-17] MEDS: MEROPENEM 1 GM VIAL IVP SCH ×2 (12:40→20:56)
[2020-02-17] MEDS: LIDOCAINE HCL-MPF 1% 2ML VIAL IV PRN (12:44)
[2020-02-17] MEDS: POTASSIUM CHLORIDE 20MEQ/100ML 100 ML IV PRN ×2 (12:44→20:57)
[2020-02-17] MEDS: KCL 20 MEQ ERTAB PO PRN ×2 (12:45→18:23)
[2020-02-17 14:33] LABS: INR 1.2 (0.85-1.15); PROTHROMBIN TIME 12.6 SEC (9.6-11.6)
[2020-02-17 14:34] LABS: PARTIAL THROMBOPLASTIN TIME 32.8 SEC (26.3-35.5)
[2020-02-17] MEDS ORDERED: IODIXANOL 320 MG/ML 100 ML VIAL ONE (14:37)
[2020-02-17] MEDS ORDERED: LIDOCAINE HCL 1% MDV 50ML VIAL ONE (14:38)
[2020-02-17] MEDS ORDERED: MIDAZOLAM HCL 1 MG/ML 2ML VIAL ONE (15:01)
[2020-02-17] MEDS ORDERED: FENTANYL CITRATE PF 50 MCG/1 ML 2ML VIAL ONE (15:01)
[2020-02-17] MEDS ORDERED: VANCOMYCIN PROTOCOL PER PHARMACY IV SCH (19:45)
[2020-02-17] MEDS: VANCOMYCIN 1G/250ML KIT 250 ML IV SCH (20:57)
[2020-02-18] VITALS (7 sets, daily range): BP systolic 98–136; BP diastolic 62–86
[2020-02-18] MEDS: MAGNESIUM 2GM PREMIX 50ML 50 ML IV PRN (00:34)
[2020-02-18] MEDS: 0.9%NACL 1000ML 1,000 ML IV SCH ×3 (02:26→23:35)
[2020-02-18] MEDS: MEROPENEM 1 GM VIAL IVP SCH ×3 (05:19→20:54)
[2020-02-18 05:38] LABS: BASOPHILS % (AUTO) 0.4 % (0.0-5.0); EOSINOPHILS % (AUTO) 1.3 % (0.0-8.0); HEMATOCRIT 31.1 % (36-48); LYMPHOCYTES % (AUTO) 7.5 % (21.0-51.0); MEAN CORPUSCULAR HEMOGLOBIN 30.3 pg (27.0-33.0); MEAN CORPUSCULAR HGB CONC 33.8 g/dL (32.0-36.0); MEAN CORPUSCULAR VOLUME 89.9 fL (79-99); MONOCYTES % (AUTO) 7.3 % (3.0-13.0); NEUTROPHILS % (AUTO) 82.7 % (40.0-77.0); PLATELET COUNT (AUTO) 206 K/uL (130-400); RED BLOOD CELL COUNT(AUTO) 3.46 MIL/uL (4.00-5.50); RED CELL DISTRIBUTION WIDTH 12.7 % (11.0-15.5); WHITE BLOOD COUNT (AUTO) 15.8 K/uL (4.8-10.8)
[2020-02-18] MEDS: HYDROMORPHONE 1 MG INJ IVP PRN ×4 (05:38→17:56)
[2020-02-18 05:57] LABS: CREATININE 0.8 mg/dL (0.5-1.5); POTASSIUM 3.1 mmol/L (3.5-5.1)
[2020-02-18] MEDS: POTASSIUM CHLORIDE 20MEQ/100ML 100 ML IV PRN ×2 (06:24→15:34)
[2020-02-18] MEDS: FAMOTIDINE 20MG TAB PO SCH ×2 (08:37→20:54)
[2020-02-18] MEDS: KCL 20 MEQ ERTAB PO PRN (15:34)
[2020-02-18] MEDS: VANCOMYCIN 1G/250ML KIT 250 ML IV SCH (20:54)
[2020-02-19 00:06] VITALS: BP 126/78
[2020-02-19 03:39] VITALS: BP 123/70
[2020-02-19] MEDS: MEROPENEM 1 GM VIAL IVP SCH ×3 (04:31→20:25)
[2020-02-19 05:57] LABS: BASOPHILS % (AUTO) 0.4 % (0.0-5.0); EOSINOPHILS % (AUTO) 4.3 % (0.0-8.0); HEMATOCRIT 29.2 % (36-48); MEAN CORPUSCULAR HEMOGLOBIN 30.9 pg (27.0-33.0); MEAN CORPUSCULAR HGB CONC 33.9 g/dL (32.0-36.0); MEAN CORPUSCULAR VOLUME 91.3 fL (79-99); MONOCYTES % (AUTO) 11.6 % (3.0-13.0); NEUTROPHILS % (AUTO) 68.5 % (40.0-77.0); PLATELET COUNT (AUTO) 184 K/uL (130-400); RED CELL DISTRIBUTION WIDTH 12.4 % (11.0-15.5)
[2020-02-19 06:07] LABS: CREATININE 0.8 mg/dL (0.5-1.5); CRP QUANTITATIVE 162.3 mg/L (0.00-9.0); POTASSIUM 3.6 mmol/L (3.5-5.1)
[2020-02-19 07:10] VITALS: BP 116/69
[2020-02-19] MEDS: FAMOTIDINE 20MG TAB PO SCH ×2 (10:37→20:25)
[2020-02-19] MEDS ORDERED: ACETAMINOPHEN WITH CODEINE 1 TAB TAB PO PRN (11:45)
[2020-02-19 11:55] VITALS: BP 119/80
[2020-02-19] MEDS: HYDROMORPHONE 1 MG INJ IVP PRN ×2 (13:26→20:41)
[2020-02-19] MEDS: IBUPROFEN 800 MG TAB PO PRN ×2 (13:27→15:05)
[2020-02-19] MEDS: 0.9%NACL 1000ML 1,000 ML IV SCH (13:52)
[2020-02-19 16:20] VITALS: BP 110/73
[2020-02-19] MEDS: KCL 20 MEQ ERTAB PO PRN (17:51)
[2020-02-19 20:00] VITALS: BP 111/72
[2020-02-19] MEDS: VANCOMYCIN 1G/250ML KIT 250 ML IV SCH (20:25)
[2020-02-20] VITALS (7 sets, daily range): BP systolic 92–123; BP diastolic 61–77
[2020-02-20] MEDS: MEROPENEM 1 GM VIAL IVP SCH ×3 (04:31→20:52)
[2020-02-20] MEDS: IBUPROFEN 800 MG TAB PO PRN (04:41)
[2020-02-20] MEDS: 0.9%NACL 1000ML 1,000 ML IV SCH ×2 (04:46→16:23)
[2020-02-20 05:38] LABS: BASOPHILS % (AUTO) 0.4 % (0.0-5.0); EOSINOPHILS % (AUTO) 10.4 % (0.0-8.0); HEMATOCRIT 29.3 % (36-48); LYMPHOCYTES % (AUTO) 19.6 % (21.0-51.0); MEAN CORPUSCULAR HEMOGLOBIN 30.4 pg (27.0-33.0); MEAN CORPUSCULAR HGB CONC 33.4 g/dL (32.0-36.0); MONOCYTES % (AUTO) 12.3 % (3.0-13.0); NEUTROPHILS % (AUTO) 57.2 % (40.0-77.0); PLATELET COUNT (AUTO) 190 K/uL (130-400); RED BLOOD CELL COUNT(AUTO) 3.22 MIL/uL (4.00-5.50); RED CELL DISTRIBUTION WIDTH 12.5 % (11.0-15.5); WHITE BLOOD COUNT (AUTO) 7.1 K/uL (4.8-10.8)
[2020-02-20 06:04] LABS: CREATININE 0.7 mg/dL (0.5-1.5); CRP QUANTITATIVE 80.4 mg/L (0.00-9.0); POTASSIUM 3.8 mmol/L (3.5-5.1)
[2020-02-20] MEDS: FAMOTIDINE 20MG TAB PO SCH ×2 (08:41→20:53)
[2020-02-20] MEDS: HYDROMORPHONE 1 MG INJ IVP PRN ×3 (08:42→18:46)
[2020-02-20] MEDS: MORPHINE 2 MG SYG IVP PRN (16:24)
[2020-02-20] MEDS: VANCOMYCIN 1G/250ML KIT 250 ML IV SCH (20:53)
[2020-02-21] MEDS: HYDROMORPHONE 1 MG INJ IVP PRN ×4 (00:44→21:29)
[2020-02-21] MEDS: ONDANSETRON 4MG INJ IVP PRN ×3 (00:48→21:48)
[2020-02-21] MEDS: MEROPENEM 1 GM VIAL IVP SCH ×3 (03:45→21:28)
[2020-02-21] MEDS: 0.9%NACL 1000ML 1,000 ML IV SCH ×2 (03:46→18:15)
[2020-02-21] MEDS: MORPHINE 2 MG SYG IVP PRN ×2 (03:46→10:59)
[2020-02-21 08:05] VITALS: BP 113/73
[2020-02-21] MEDS: FAMOTIDINE 20MG TAB PO SCH ×2 (08:27→21:30)
[2020-02-21] MEDS: VANCOMYCIN 1G/250ML KIT 250 ML IV SCH ×2 (08:27→21:35)
[2020-02-21 11:38] VITALS: BP 112/77
[2020-02-21 16:58] VITALS: BP 104/67
[2020-02-21 20:12] VITALS: BP 116/87
[2020-02-21 23:40] VITALS: BP 98/55
[2020-02-22] VITALS (25 sets, daily range): BP systolic 100–144; BP diastolic 65–83
[2020-02-22] MEDS ORDERED: MORPHINE 2 MG SYG IVP PRN
[2020-02-22] MEDS: HYDROMORPHONE 1 MG INJ IVP PRN ×3 (04:40→20:23)
[2020-02-22] MEDS: MEROPENEM 1 GM VIAL IVP SCH ×3 (04:41→20:11)
[2020-02-22 05:12] LABS: BASOPHILS % (AUTO) 0.9 % (0.0-5.0); HEMATOCRIT 28.5 % (36-48); LYMPHOCYTES % (AUTO) 32.1 % (21.0-51.0); MEAN CORPUSCULAR HEMOGLOBIN 29.9 pg (27.0-33.0); MEAN CORPUSCULAR HGB CONC 32.6 g/dL (32.0-36.0); MEAN CORPUSCULAR VOLUME 91.6 fL (79-99); MONOCYTES % (AUTO) 9.2 % (3.0-13.0); NEUTROPHILS % (AUTO) 49.6 % (40.0-77.0); PLATELET COUNT (AUTO) 274 K/uL (130-400); RED BLOOD CELL COUNT(AUTO) 3.11 MIL/uL (4.00-5.50); RED CELL DISTRIBUTION WIDTH 12.5 % (11.0-15.5); WHITE BLOOD COUNT (AUTO) 5.9 K/uL (4.8-10.8)
[2020-02-22 05:38] LABS: CREATININE 0.7 mg/dL (0.5-1.5); POTASSIUM 3.3 mmol/L (3.5-5.1)
[2020-02-22] MEDS: 0.9%NACL 1000ML 1,000 ML IV SCH ×2 (06:31→20:11)
[2020-02-22] MEDS: POTASSIUM CHLORIDE 20MEQ/100ML 100 ML IV PRN (06:43)
[2020-02-22] MEDS: LIDOCAINE HCL-MPF 1% 2ML VIAL IV PRN (06:44)
[2020-02-22] MEDS: FAMOTIDINE 20MG TAB PO SCH ×2 (11:02→20:11)
[2020-02-22] MEDS: VANCOMYCIN 1G/250ML KIT 250 ML IV SCH ×2 (11:02→20:11)
[2020-02-22] MEDS: ONDANSETRON 4MG INJ IVP PRN (11:23)
[2020-02-22] MEDS ORDERED: LACTATED RINGERS 1000ML 1,000 ML IV ONE (12:54)
[2020-02-22] MEDS ORDERED: LIDOCAINE PF 100MG/5ML (2%) SYRINGE 5ML ONE (16:15)
[2020-02-22] MEDS ORDERED: SUCCINYLCHOLINE 200MG/10ML SYR ONE ×2 (16:15→16:17)
[2020-02-22] MEDS ORDERED: DEXAMETHASONE SOD PHOSPHATE 10MG/ML 1ML VIAL ONE (16:15)
[2020-02-22] MEDS ORDERED: MIDAZOLAM HCL 1 MG/ML 2ML VIAL ONE (16:16)
[2020-02-22] MEDS ORDERED: PROPOFOL 10 MG/ML 20ML VIAL IV ONE (16:16)
[2020-02-22] MEDS ORDERED: FENTANYL CITRATE PF 50 MCG/1 ML 2ML VIAL ONE (16:16)
[2020-02-22] MEDS ORDERED: ONDANSETRON 4MG INJ ONE (16:16)
[2020-02-22] MEDS ORDERED: MEPERIDINE-PF 25 MG/ML SYG ONE ×2 (16:18→18:08)
[2020-02-22] MEDS ORDERED: IOHEXOL-350 50ML VIAL IV ONE (16:31)
[2020-02-22] MEDS: KCL 20 MEQ ERTAB PO PRN (20:12)
[2020-02-23] VITALS (7 sets, daily range): BP systolic 94–136; BP diastolic 55–91
[2020-02-23] MEDS: ONDANSETRON 4MG INJ IVP PRN ×2 (02:35→13:39)
[2020-02-23] MEDS: HYDROMORPHONE 1 MG INJ IVP PRN ×2 (02:36→09:07)
[2020-02-23] MEDS: MEROPENEM 1 GM VIAL IVP SCH ×3 (04:32→19:42)
[2020-02-23 05:40] LABS: BASOPHILS % (AUTO) 0.5 % (0.0-5.0); EOSINOPHILS % (AUTO) 0.5 % (0.0-8.0); HEMATOCRIT 30.1 % (36-48); LYMPHOCYTES % (AUTO) 16.4 % (21.0-51.0); MEAN CORPUSCULAR HEMOGLOBIN 29.3 pg (27.0-33.0); MEAN CORPUSCULAR HGB CONC 32.2 g/dL (32.0-36.0); MEAN CORPUSCULAR VOLUME 90.9 fL (79-99); MONOCYTES % (AUTO) 6.3 % (3.0-13.0); NEUTROPHILS % (AUTO) 75.9 % (40.0-77.0); PLATELET COUNT (AUTO) 358 K/uL (130-400); RED BLOOD CELL COUNT(AUTO) 3.31 MIL/uL (4.00-5.50); RED CELL DISTRIBUTION WIDTH 12.4 % (11.0-15.5); WHITE BLOOD COUNT (AUTO) 5.6 K/uL (4.8-10.8)
[2020-02-23 05:51] LABS: CREATININE 0.7 mg/dL (0.5-1.5); MAGNESIUM 1.9 mg/dL (1.80-2.40); POTASSIUM 4.5 mmol/L (3.5-5.1)
[2020-02-23] MEDS: MAGNESIUM 2GM PREMIX 50ML 50 ML IV PRN (05:57)
[2020-02-23] MEDS: POLYETHYLENE GLYCOL 3350 17 GM POWD.PACK PO SCH (09:03)
[2020-02-23] MEDS: VANCOMYCIN 1G/250ML KIT 250 ML IV SCH ×2 (09:03→22:13)
[2020-02-23] MEDS: FAMOTIDINE 20MG TAB PO SCH ×2 (09:03→19:42)
[2020-02-23] MEDS: 0.9%NACL 1000ML 1,000 ML IV SCH ×2 (10:15→23:35)
[2020-02-23] MEDS: HYDROMORPHONE 0.5 MG SYG (0.5MG/0.5ML) IVP PRN ×2 (16:52→23:04)
[2020-02-23] MEDS: PHENAZOPYRIDINE HCL 200 MG TABLET PO PRN (16:52)
[2020-02-23] MEDS: TRAMADOL HCL 50 MG TABLET PO PRN (20:23)
[2020-02-24 04:00] VITALS: BP 114/55
[2020-02-24] MEDS: MEROPENEM 1 GM VIAL IVP SCH ×3 (05:38→20:59)
[2020-02-24 06:10] LABS: BASOPHILS % (AUTO) 0.7 % (0.0-5.0); HEMATOCRIT 30.1 % (36-48); LYMPHOCYTES % (AUTO) 19.2 % (21.0-51.0); MEAN CORPUSCULAR HEMOGLOBIN 30.2 pg (27.0-33.0); MEAN CORPUSCULAR HGB CONC 32.6 g/dL (32.0-36.0); MEAN CORPUSCULAR VOLUME 92.9 fL (79-99); MONOCYTES % (AUTO) 7.7 % (3.0-13.0); PLATELET COUNT (AUTO) 298 K/uL (130-400); RED BLOOD CELL COUNT(AUTO) 3.24 MIL/uL (4.00-5.50); RED CELL DISTRIBUTION WIDTH 12.6 % (11.0-15.5); WHITE BLOOD COUNT (AUTO) 10.1 K/uL (4.8-10.8)
[2020-02-24 06:25] LABS: CREATININE 0.9 mg/dL (0.5-1.5); POTASSIUM 3.7 mmol/L (3.5-5.1)
[2020-02-24] MEDS: VANCOMYCIN 1G/250ML KIT 250 ML IV SCH (08:00)
[2020-02-24] MEDS: HYDROMORPHONE 0.5 MG SYG (0.5MG/0.5ML) IVP PRN ×2 (08:29→18:07)
[2020-02-24] MEDS: FAMOTIDINE 20MG TAB PO SCH ×2 (08:30→20:59)
[2020-02-24] MEDS: POLYETHYLENE GLYCOL 3350 17 GM POWD.PACK PO SCH (08:32)
[2020-02-24 08:54] VITALS: BP 109/69
[2020-02-24 11:54] VITALS: BP 113/75
[2020-02-24] MEDS: 0.9%NACL 1000ML 1,000 ML IV SCH (12:55)
[2020-02-24] MEDS: IBUPROFEN 800 MG TAB PO PRN (14:23)
[2020-02-24] MEDS: PHENAZOPYRIDINE HCL 200 MG TABLET PO PRN (15:39)
[2020-02-24 17:27] VITALS: BP 118/77
[2020-02-24 19:52] VITALS: BP 104/65
[2020-02-24] MEDS: TRAMADOL HCL 50 MG TABLET PO PRN (21:17)
[2020-02-24 23:55] VITALS: BP 110/78
[2020-02-25] MEDS: 0.9%NACL 1000ML 1,000 ML IV SCH (02:27)
[2020-02-25] MEDS: ONDANSETRON 4MG INJ IVP PRN ×2 (02:27→09:14)
[2020-02-25] MEDS: HYDROMORPHONE 0.5 MG SYG (0.5MG/0.5ML) IVP PRN ×3 (02:36→16:16)
[2020-02-25 04:00] VITALS: BP 96/61
[2020-02-25] MEDS: MEROPENEM 1 GM VIAL IVP SCH ×2 (05:43→14:02)
[2020-02-25 07:30] VITALS: BP 116/74
[2020-02-25] MEDS: POLYETHYLENE GLYCOL 3350 17 GM POWD.PACK PO SCH (09:16)
[2020-02-25] MEDS: FAMOTIDINE 20MG TAB PO SCH (09:16)
[2020-02-25 11:00] VITALS: BP 131/85
[2020-02-25] MEDS ORDERED: PHEN-775 PO (15:16)
[2020-02-25 16:00] VITALS: BP 128/96
[2020-02-25] MEDS ORDERED: TRAM50TA4 PO (17:18)
[2020-03-13] MEDS ORDERED: NITR100C PO (13:07)
[2020-03-13] MEDS ORDERED: FLUC200T8 PO (13:07)
[2020-03-27] MEDS ORDERED: CEPH500T PO (15:11)
[2020-03-27] MEDS ORDERED: ONDA4TAB4 PO (15:11)
[2020-03-27] MEDS ORDERED: TRAM-355 PO (15:11)
[2020-07-11] MEDS ORDERED: IBUP-2077 PO (18:39)
[2020-07-11] MEDS ORDERED: MELO-108 PO (18:39)
[2020-07-11] MEDS ORDERED: IRON-15 PO (18:39)
[2020-07-11] MEDS ORDERED: OXYB5TAB15 PO (18:39)
[2020-07-11] MEDS ORDERED: ONDA-104 PO (18:39)
[2020-08-11] MEDS ORDERED: CEPH500C2 PO (18:14)
[2020-08-17] MEDS ORDERED: ACET1TAB25 PO (07:04)
== END 2020-02-25 17:45 | disposition home or self-care (01) | DRG 720 ==
LOC: EDH 13:37 → EDHIP 16:23 → 3BH 02-17 03:03
PROVIDERS: ADMIT Hospitalist; ATTEND Hospitalist
PROC: BT141ZZ Fluoroscopy of Kidneys, Ureters and Bladder using Low Osmolar Contrast (ICD-10-PCS; 2020-02-17)
PROC: 0T9430Z Drainage of Left Kidney Pelvis with Drainage Device, Percutaneous Approach (ICD-10-PCS; 2020-02-17)
PROC: BT141ZZ Fluoroscopy of Kidneys, Ureters and Bladder using Low Osmolar Contrast (ICD-10-PCS; principal; 2020-02-22 16:36)
PROC: 0T788DZ Dilation of Bilateral Ureters with Intraluminal Device, Via Natural or Artificial Opening Endoscopic (ICD-10-PCS; 2020-02-22 16:36)
PROC: 0TP5X0Z Removal of Drainage Device from Kidney, External Approach (ICD-10-PCS; 2020-02-22 16:36)
DX: A41.50 Gram-negative sepsis, unspecified (principal); R65.20 Severe sepsis without septic shock; E87.6 Hypokalemia; N20.2 Calculus of kidney with calculus of ureter; G89.29 Other chronic pain; I10 Essential (primary) hypertension; K57.90 Diverticulosis of intestine, part unspecified, without perforation or abscess without bleeding; K59.00 Constipation, unspecified; N13.6 Pyonephrosis; N32.89 Other specified disorders of bladder; Z16.24 Resistance to multiple antibiotics; Z20.822 Contact with and (suspected) exposure to COVID-19; R53.81 Other malaise; E66.9 Obesity, unspecified; Z68.26 Body mass index [BMI] 26.0-26.9, adult; Z88.2 Allergy status to sulfonamides; Z88.8 Allergy status to other drugs, medicaments and biological substances; Z87.442 Personal history of urinary calculi; Z87.440 Personal history of urinary (tract) infections; Z86.19 Personal history of other infectious and parasitic diseases; Z83.3 Family history of diabetes mellitus; Z82.3 Family history of stroke; Z82.49 Family history of ischemic heart disease and other diseases of the circulatory system
CPT/HCPCS: 36415; 50431; 50432; 74176; 74420; 75989; 80048; 80053; 80202; 81001; 81025; 82360; 83605; 83735; 84145; 85025; 85610; 85730; 86140; 87040; 87088; 87426; 99156; 99157; A4344; C1729; C1758; C1769; C1894; C2617; G0378; J0330; J0696; J1100; J1170; J1644; J1885; J2001; J2175; J2185; J2250; J2270; J2405; J2704; J3010; J3370; J3475; J3480; J3490; J7030; J7120; Q9967; U0003

== ENCOUNTER 2020-03-14 08:17 | Day surgery (SDC) | payer MEDICAID ==
[~2020-03-14] VITALS: Ht 149.9 cm; Wt 58.1 kg
[2020-03-14] VITALS (17 sets, daily range): BP systolic 101–131; BP diastolic 59–82
[~2020-03-14 08:17] MED LIST changes: -ACET1TAB25 PO; +FLUC200T8 PO; -IBUP-2077 PO; +NITR100C PO; +TRAM50TA4 PO; -ZOSY3375FZ IV
[2020-03-14] MEDS ORDERED: IOHEXOL-350 50ML VIAL IV ONE (08:45)
[2020-03-14] MEDS ORDERED: LACTATED RINGERS 1000ML 1,000 ML IV ONE (09:53)
[2020-03-14] MEDS: ZOSYN 3.375GM+NS 50ML 50 ML IV PRN ×2 (09:57→12:30)
[2020-03-14] MEDS ORDERED: ONDANSETRON HCL 4 MG/2 ML VIAL ONE ×2 (10:26→11:44)
[2020-03-14] MEDS ORDERED: DEXAMETHASONE SOD PHOSPHATE 10MG/ML 1ML VIAL ONE (11:44)
[2020-03-14] MEDS ORDERED: LIDOCAINE PF 2% 5ML ABBOJECT ONE (11:44)
[2020-03-14] MEDS ORDERED: NEOSTIGMINE 5MG/5ML SYR IV ONE (11:44)
[2020-03-14] MEDS ORDERED: SUCCINYLCHOLINE 200MG/10ML SYR ONE (11:44)
[2020-03-14] MEDS ORDERED: ROCURONIUM 10MG/1ML SYR 10 MG/ML ML ONE (11:44)
[2020-03-14] MEDS ORDERED: PROPOFOL 10 MG/ML 20ML VIAL IV ONE (11:44)
[2020-03-14] MEDS ORDERED: MIDAZOLAM HCL 1 MG/ML 2ML VIAL ONE (11:44)
[2020-03-14] MEDS ORDERED: GLYCOPYRROLATE 1 MG/5 ML SYRINGE ONE (11:44)
[2020-03-14] MEDS ORDERED: ONDANSETRON HCL 4 MG/2 ML VIAL IVP PRN (11:45)
[2020-03-14] MEDS ORDERED: PROMETHAZINE HCL 25 MG/ML 1ML AMPULE IM PRN (11:45)
[2020-03-14] MEDS ORDERED: KETOROLAC TROMETHAMINE 30MG/ML IVP PRN (11:45)
[2020-03-14] MEDS ORDERED: FENTANYL CITRATE PF 50 MCG/1 ML 2ML VIAL ONE (11:45)
[2020-03-14] MEDS ORDERED: NALOXONE HCL 0.4 MG/1 ML ML IVP PRN (11:45)
[2020-03-14] MEDS ORDERED: METOCLOPRAMIDE 10 MG/2 ML VIAL IVP PRN (11:45)
[2020-03-14] MEDS ORDERED: IPRATROPIUM/ALBUTEROL SULFATE 3 ML SOLUTION IH PRN (11:45)
[2020-03-14] MEDS ORDERED: ATROPINE SULFATE 0.1 MG/ML 10 ML SYG IVP ONE (12:44)
[2020-03-14] MEDS ORDERED: MEPERIDINE-PF 25 MG/ML SYG ONE ×2 (13:16→13:23)
[2020-03-14] MEDS ORDERED: ACETAMINOPHEN EXTRA STRENGTH 500 MG TABLET ONE (14:32)
== END 2020-03-14 14:50 | disposition home or self-care (01) ==
LOC: DAH 08:17
PROVIDERS: ATTEND Urology
DX: N20.0 Calculus of kidney (principal); Z90.49 Acquired absence of other specified parts of digestive tract; Z98.51 Tubal ligation status; Z88.1 Allergy status to other antibiotic agents; Z79.899 Other long term (current) drug therapy; Z98.890 Other specified postprocedural states; Z20.828 Contact with and (suspected) exposure to other viral communicable diseases
CPT/HCPCS: 52332; 74420; 87426; 96374; A4215; A4221; A4222; A4223; A4358; A4663; C1758 ×2; C1769 ×2; C2617; J0330; J0461; J1100; J2001; J2175 ×2; J2250; J2405 ×2; J2543; J2704; J2710; J3010; J3490; J7120; Q9967; U0003

== ENCOUNTER → 2020-03-21 | Outpatient (CLI) | payer MEDICAID | END | disposition home or self-care (01) | LOC: RAH 14:37 | PROVIDERS: ATTEND Urology | DX: K80.20 Calculus of gallbladder without cholecystitis without obstruction (principal); N20.0 Calculus of kidney; Z96.0 Presence of urogenital implants | CPT/HCPCS: 74018; 76100 ==

== ENCOUNTER 2020-03-23 19:05 | Emergency (ER) | payer MEDICAID ==
[2020-03-23] MEDS ORDERED: ONDANSETRON 4MG INJ ONE (19:29)
[2020-03-23] MEDS ORDERED: MORPHINE 4 MG SYG ONE (19:29)
[2020-03-23] MEDS ORDERED: 0.9%NACL 1000ML 1,000 ML IV ONE (19:31)
[2020-03-23 19:32] LABS: APPEARANCE,URINE CLOUDY (CLEAR); BILIRUBIN,URINE NEGATIVE (NEGATIVE); COLOR,URINE YELLOW (YELLOW); GLUCOSE, URINE (UA) NEGATIVE (NEGATIVE); KETONES,URINE NEGATIVE (NEGATIVE); LEUKOCYTE ESTERASE ,URINE MODERATE (NEGATIVE); NITRATE,URINE NEGATIVE (NEGATIVE); OCCULT BLOOD,URINE LARGE (NEGATIVE); PROTEIN,URINE 100 mg/dL (NEGATIVE); UROBILINOGEN,URINE 0.2 mg/dL (0.2-1.0)
[2020-03-23 19:48] LABS: BACTERIA,URINE Moderate /HPF (None Seen); MUCUS,URINE Few LPF (None Seen); SQUAMOUS EPITHELIAL CELL,UR 0-2 /HPF (0-2)
[2020-03-23 19:48] LABS: BASOPHILS % (AUTO) 0.9 % (0.0-5.0); EOSINOPHILS % (AUTO) 6.2 % (0.0-8.0); HEMATOCRIT 33.1 % (36-48); LYMPHOCYTES % (AUTO) 28.9 % (21.0-51.0); MEAN CORPUSCULAR HEMOGLOBIN 29.4 pg (27.0-33.0); MEAN CORPUSCULAR HGB CONC 32.6 g/dL (32.0-36.0); MEAN CORPUSCULAR VOLUME 90.2 fL (79-99); MONOCYTES % (AUTO) 6.1 % (3.0-13.0); NEUTROPHILS % (AUTO) 57.7 % (40.0-77.0); PLATELET COUNT (AUTO) 355 K/uL (130-400); RED BLOOD CELL COUNT(AUTO) 3.67 MIL/uL (4.00-5.50); RED CELL DISTRIBUTION WIDTH 13.2 % (11.0-15.5); WHITE BLOOD COUNT (AUTO) 8.7 K/uL (4.8-10.8)
[2020-03-23 20:01] LABS: POTASSIUM 4.2 mmol/L (3.5-5.1)
[2020-03-23 20:10] LABS: ALBUMIN 3.2 g/dL (3.5-5.0); BILIRUBIN,TOTAL 0.1 mg/dL (0.2-1.0); TOTAL PROTEIN, SERUM 6.9 g/dL (6.0-8.3)
[2020-03-23] MEDS ORDERED: CEFTRIAXONE 1G VIAL ONE (20:33)
[2020-03-23] MEDS ORDERED: FENTANYL CITRATE PF 50 MCG/1 ML 2ML VIAL ONE (20:33)
[2020-03-23] MEDS ORDERED: 0.9%NACL 50ML 50 ML IV ONE (20:36)
[2020-03-27] MEDS ORDERED: CEPH500T PO (15:11)
[2020-03-27] MEDS ORDERED: TRAM-355 PO (15:11)
[2020-03-27] MEDS ORDERED: ONDA4TAB4 PO (15:11)
[2020-07-11] MEDS ORDERED: OXYB5TAB15 PO (18:39)
[2020-07-11] MEDS ORDERED: ONDA-104 PO (18:39)
[2020-07-11] MEDS ORDERED: IRON-15 PO (18:39)
[2020-07-11] MEDS ORDERED: IBUP-2077 PO (18:39)
[2020-07-11] MEDS ORDERED: MELO-108 PO (18:39)
[2020-08-11] MEDS ORDERED: CEPH500C2 PO (18:14)
[2020-08-17] MEDS ORDERED: ACET1TAB25 PO (07:04)
== END 2020-03-23 21:16 | disposition home or self-care (01) ==
LOC: EDH 19:05
DX: N30.90 Cystitis, unspecified without hematuria (principal); N20.0 Calculus of kidney; Z20.822 Contact with and (suspected) exposure to COVID-19; Z90.49 Acquired absence of other specified parts of digestive tract; Z88.2 Allergy status to sulfonamides
CPT/HCPCS: 36415; 74176; 80053; 81001; 83690; 84484; 85025; 87088; 87426; 96365; 96375; 99284; J0696; J2270; J2405; J3010; J7030

== ENCOUNTER 2020-03-28 08:00 | Day surgery (SDC) | payer MEDICAID ==
[2020-03-24 13:54] LABS: INR 0.98 (0.85-1.15); PROTHROMBIN TIME 10.7 SEC (9.6-11.6)
[2020-03-24 13:56] LABS: PARTIAL THROMBOPLASTIN TIME 27.4 SEC (26.3-35.5)
[2020-03-27 13:34] VITALS: BP 141/81
[~2020-03-28] VITALS: Ht 149.9 cm; Wt 60.8 kg
[2020-03-28] VITALS (17 sets, daily range): BP systolic 117–150; BP diastolic 74–89
[~2020-03-28 08:00] MED LIST changes: +CEPH500T PO; -FLUC200T8 PO; +LACTATED RINGERS 1000ML 1,000 ML IV SCH; -NITR100C PO; +ONDA4TAB4 PO; +TRAM-355 PO; -TRAM50TA4 PO; +ZOSYN 3.375GM+NS 50ML 50 ML IV PRN
[2020-03-28] MEDS ORDERED: SUCCINYLCHOLINE 200MG/10ML SYR ONE (09:27)
[2020-03-28] MEDS ORDERED: DEXAMETHASONE SOD PHOSPHATE 10MG/ML 1ML VIAL ONE (09:27)
[2020-03-28] MEDS ORDERED: LIDOCAINE PF 2% 5ML ABBOJECT ONE (09:27)
[2020-03-28] MEDS ORDERED: ONDANSETRON HCL 4 MG/2 ML VIAL ONE (09:28)
[2020-03-28] MEDS ORDERED: PROPOFOL 10 MG/ML 20ML VIAL IV ONE (09:28)
[2020-03-28] MEDS ORDERED: ROCURONIUM 10MG/1ML SYR 10 MG/ML ML ONE (09:28)
[2020-03-28] MEDS ORDERED: FENTANYL CITRATE PF 50 MCG/1 ML 2ML VIAL ONE (09:28)
[2020-03-28] MEDS ORDERED: MIDAZOLAM HCL 1 MG/ML 2ML VIAL ONE (09:28)
[2020-03-28] MEDS ORDERED: NEOSTIGMINE 5MG/5ML SYR IV ONE (10:58)
[2020-03-28] MEDS ORDERED: GLYCOPYRROLATE 1 MG/5 ML SYRINGE ONE (10:58)
[2020-03-28] MEDS ORDERED: ACETAMINOPHEN-CODEINE 300/30MG TAB ONE (12:25)
[2020-03-28] MEDS ORDERED: ACETAMINOPHEN-CODEINE 300/30MG TAB PO PRN (15:45)
== END 2020-03-28 13:30 | disposition home or self-care (01) ==
LOC: DAH 08:00
PROVIDERS: ATTEND Urology
DX: Z46.6 Encounter for fitting and adjustment of urinary device (principal); N20.0 Calculus of kidney; M06.9 Rheumatoid arthritis, unspecified; E66.9 Obesity, unspecified; Z90.49 Acquired absence of other specified parts of digestive tract; Z88.8 Allergy status to other drugs, medicaments and biological substances; Z98.51 Tubal ligation status; Z79.01 Long term (current) use of anticoagulants
CPT/HCPCS: 36415; 50590; 52310; 71046; 85610; 85730; 93005; A4215; A4221; A4222; A4223; A4358; A4600; A4663; C1758; J0330; J1100; J2001; J2250; J2405; J2543; J2704; J2710; J3010; J3490; J7120 ×2

== ENCOUNTER → 2020-05-04 | Outpatient (CLI) | payer MEDICAID ==
[~2020-05-04] MED LIST changes: -LACTATED RINGERS 1000ML 1,000 ML IV SCH; -ZOSYN 3.375GM+NS 50ML 50 ML IV PRN
== END | disposition home or self-care (01) ==
LOC: RAH 09:15
PROVIDERS: ATTEND Urology
DX: K59.00 Constipation, unspecified (principal); N20.0 Calculus of kidney; N28.89 Other specified disorders of kidney and ureter
CPT/HCPCS: 74018; 76100

== ENCOUNTER 2020-05-23 09:59 | Day surgery (SDC) | payer MEDICAID ==
[2020-05-18 11:30] LABS: HEMATOCRIT 39.9 % (36-48); MEAN CORPUSCULAR HEMOGLOBIN 29.2 pg (27.0-33.0); MEAN CORPUSCULAR HGB CONC 31.1 g/dL (32.0-36.0); MEAN CORPUSCULAR VOLUME 94.1 fL (79-99); RED BLOOD CELL COUNT(AUTO) 4.24 MIL/uL (4.00-5.50); RED CELL DISTRIBUTION WIDTH 14.6 % (11.0-15.5); WHITE BLOOD COUNT (AUTO) 8.3 K/uL (4.8-10.8)
[2020-05-18 11:32] LABS: APPEARANCE,URINE TURBID (CLEAR); BILIRUBIN,URINE SMALL (NEGATIVE); COLOR,URINE RED (YELLOW); GLUCOSE, URINE (UA) NEGATIVE (NEGATIVE); KETONES,URINE NEGATIVE (NEGATIVE); LEUKOCYTE ESTERASE ,URINE MODERATE (NEGATIVE); NITRATE,URINE POSITIVE (NEGATIVE); OCCULT BLOOD,URINE LARGE (NEGATIVE); PROTEIN,URINE >=300 mg/dL (NEGATIVE)
[2020-05-18 11:34] LABS: CREATININE 0.8 mg/dL (0.5-1.5); POTASSIUM 4.5 mmol/L (3.5-5.1)
[2020-05-18 11:49] LABS: INR 0.94 (0.85-1.15); PROTHROMBIN TIME 10.3 SEC (9.6-11.6)
[2020-05-18 11:50] LABS: PARTIAL THROMBOPLASTIN TIME 28.3 SEC (26.3-35.5)
[2020-05-18 11:51] LABS: BACTERIA,URINE Rare /HPF (None Seen); RBC,URINE TNTC /HPF (0-1); SQUAMOUS EPITHELIAL CELL,UR Few /HPF (0-2)
[2020-05-22 11:32] VITALS: BP 161/85
[~2020-05-23] VITALS: Ht 401.3 cm; Wt 63.0 kg
[2020-05-23] VITALS (18 sets, daily range): BP systolic 124–154; BP diastolic 71–98
[2020-05-23] MEDS: LACTATED RINGERS 1000ML 1,000 ML IV SCH ×2 (08:00→11:36)
[~2020-05-23 09:59] MED LIST changes: -CEPH500T PO; +ZOSYN 3.375GM+NS 50ML 50 ML IV PRN
[2020-05-23] MEDS ORDERED: LIDOCAINE PF 2% 5ML ABBOJECT ONE (11:59)
[2020-05-23] MEDS ORDERED: SUCCINYLCHOLINE 200MG/10ML SYR ONE (11:59)
[2020-05-23] MEDS ORDERED: DEXAMETHASONE SOD PHOSPHATE 10MG/ML 1ML VIAL ONE (11:59)
[2020-05-23] MEDS ORDERED: ONDANSETRON HCL 4 MG/2 ML VIAL ONE (12:00)
[2020-05-23] MEDS ORDERED: FENTANYL CITRATE PF 50 MCG/1 ML 2ML VIAL ONE (12:00)
[2020-05-23] MEDS ORDERED: PROPOFOL 10 MG/ML 20ML VIAL IV ONE (12:00)
[2020-05-23] MEDS ORDERED: NEOSTIGMINE 5MG/5ML SYR IV ONE ×2 (12:00→14:11)
[2020-05-23] MEDS ORDERED: MIDAZOLAM HCL 1 MG/ML 2ML VIAL ONE (12:00)
[2020-05-23] MEDS ORDERED: ROCURONIUM 10MG/1ML SYR 10 MG/ML ML ONE (12:00)
[2020-05-23] MEDS ORDERED: GLYCOPYRROLATE 1 MG/5 ML SYRINGE ONE ×2 (12:00→14:11)
[2020-05-23] MEDS ORDERED: MEPERIDINE-PF 25 MG/ML SYG ONE (12:02)
== END 2020-05-23 16:25 | disposition home or self-care (01) ==
LOC: DAH 09:59
PROVIDERS: ATTEND Urology
DX: N20.0 Calculus of kidney (principal); M06.9 Rheumatoid arthritis, unspecified; G89.29 Other chronic pain; Z90.49 Acquired absence of other specified parts of digestive tract; Z98.890 Other specified postprocedural states; Z20.828 Contact with and (suspected) exposure to other viral communicable diseases; Z79.01 Long term (current) use of anticoagulants; Z79.899 Other long term (current) drug therapy
CPT/HCPCS: 36415; 50590; 71046; 74018; 76100; 80048; 81001; 85027; 85610; 85730; 87088; 93005; A4215; A4221; A4222; A4223; A4663; C9803; J0330; J1100; J2001; J2250; J2405; J2543 ×2; J2704; J2710 ×2; J3010; J3490 ×2; J7120; U0003; J2175

== ENCOUNTER → 2020-07-27 | Outpatient (CLI) | payer MEDICAID ==
[~2020-07-27] MED LIST changes: +IBUP-2077 PO; +IRON-15 PO; +MELO-108 PO; +ONDA-104 PO; -ONDA4TAB4 PO; -TRAM-355 PO; -ZOSYN 3.375GM+NS 50ML 50 ML IV PRN
== END | disposition home or self-care (01) ==
LOC: RAH 11:09
PROVIDERS: ATTEND Urology
DX: N20.2 Calculus of kidney with calculus of ureter (principal); Z93.6 Other artificial openings of urinary tract status
CPT/HCPCS: 74018; 76100

== ENCOUNTER 2020-08-08 10:15 | Emergency (ER) | payer MEDICAID ==
[~2020-08-08] VITALS: Ht 149.9 cm; Wt 63.0 kg
[2020-08-08 10:17] VITALS: BP 136/100
[2020-08-08 11:15] LABS: BASOPHILS % (AUTO) 0.4 % (0.0-5.0); EOSINOPHILS % (AUTO) 3.8 % (0.0-8.0); HEMATOCRIT 43.3 % (36-48); LYMPHOCYTES % (AUTO) 25.5 % (21.0-51.0); MEAN CORPUSCULAR HEMOGLOBIN 30.3 pg (27.0-33.0); MEAN CORPUSCULAR HGB CONC 32.6 g/dL (32.0-36.0); MEAN CORPUSCULAR VOLUME 92.9 fL (79-99); MONOCYTES % (AUTO) 8.1 % (3.0-13.0); NEUTROPHILS % (AUTO) 61.8 % (40.0-77.0); PLATELET COUNT (AUTO) 249 K/uL (130-400); RED BLOOD CELL COUNT(AUTO) 4.66 MIL/uL (4.00-5.50); RED CELL DISTRIBUTION WIDTH 12.8 % (11.0-15.5); WHITE BLOOD COUNT (AUTO) 7.4 K/uL (4.8-10.8)
[2020-08-08 11:24] VITALS: BP 154/103
[2020-08-08 11:30] LABS: ALBUMIN 3.6 g/dL (3.5-5.0); BILIRUBIN,TOTAL 0.2 mg/dL (0.2-1.0); CREATININE 1.3 mg/dL (0.5-1.5); POTASSIUM 4.2 mmol/L (3.5-5.1); TOTAL PROTEIN, SERUM 8.3 g/dL (6.0-8.3)
[2020-08-08] MEDS ORDERED: MORPHINE 4 MG SYG IV ONE (11:30)
[2020-08-08] MEDS ORDERED: ONDANSETRON 4MG INJ ONE (11:30)
[2020-08-08] MEDS ORDERED: MORPHINE 4 MG SYG ONE (11:30)
[2020-08-08] MEDS ORDERED: ONDANSETRON 4MG INJ IVP ONE (11:30)
[2020-08-08 11:47] LABS: APPEARANCE,URINE CLOUDY (CLEAR); BILIRUBIN,URINE NEGATIVE (NEGATIVE); COLOR,URINE YELLOW (YELLOW); GLUCOSE, URINE (UA) NEGATIVE (NEGATIVE); KETONES,URINE NEGATIVE (NEGATIVE); LEUKOCYTE ESTERASE ,URINE LARGE (NEGATIVE); NITRATE,URINE POSITIVE (NEGATIVE); OCCULT BLOOD,URINE LARGE (NEGATIVE); PH,URINE 7.5 (5.0-8.0); PROTEIN,URINE >=300 mg/dL (NEGATIVE); UROBILINOGEN,URINE 0.2 mg/dL (0.2-1.0)
[2020-08-08] MEDS ORDERED: KETOROLAC 15MG/ML VIAL (15MG/ML) IV ONE (12:00)
[2020-08-08 12:03] LABS: WBC,URINE 26-50 /HPF (0-1)
[2020-08-08 12:04] LABS: BACTERIA,URINE Moderate /HPF (None Seen)
[2020-08-08 12:06] LABS: SQUAMOUS EPITHELIAL CELL,UR Few /HPF (0-2)
[2020-08-08 12:30] VITALS: BP 141/71
[2020-08-08] MEDS ORDERED: CEFTRIAXONE 1G VIAL IVP SCH (12:45)
[2020-08-08 13:46] VITALS: BP 136/72
[2020-08-08] MEDS ORDERED: CEPH500B PO (14:09)
[2020-08-08] MEDS ORDERED: IBUP-2077 PO (14:09)
[2020-08-11] MEDS ORDERED: CEPH500C2 PO (18:14)
== END 2020-08-08 14:25 | disposition home or self-care (01) ==
LOC: EDH 10:15
DX: N39.0 Urinary tract infection, site not specified (principal); M19.90 Unspecified osteoarthritis, unspecified site; Z88.2 Allergy status to sulfonamides; Z88.1 Allergy status to other antibiotic agents; Z87.442 Personal history of urinary calculi; Z79.1 Long term (current) use of non-steroidal anti-inflammatories (NSAID); Z90.49 Acquired absence of other specified parts of digestive tract; Z98.890 Other specified postprocedural states; Z79.899 Other long term (current) drug therapy; Z93.6 Other artificial openings of urinary tract status
CPT/HCPCS: 36415; 74176; 80053; 81001; 85025; 87077; 87088; 87186; 96374; 96375; 99284; J0696; J1885; J2270; J2405

== ENCOUNTER 2020-08-21 18:57 | Emergency (ER) | payer MEDICAID ==
[~2020-08-21] VITALS: Ht 149.9 cm; Wt 59.0 kg
[~2020-08-21 18:57] MED LIST changes: +ACET1TAB25 PO
[2020-08-21 18:58] VITALS: BP 143/93
[2020-08-21 19:53] LABS: BASOPHILS % (AUTO) 0.8 % (0.0-5.0); EOSINOPHILS % (AUTO) 4.7 % (0.0-8.0); HEMATOCRIT 35.2 % (36-48); LYMPHOCYTES % (AUTO) 37.5 % (21.0-51.0); MEAN CORPUSCULAR HEMOGLOBIN 31.1 pg (27.0-33.0); MEAN CORPUSCULAR HGB CONC 33.5 g/dL (32.0-36.0); MEAN CORPUSCULAR VOLUME 92.6 fL (79-99); MONOCYTES % (AUTO) 8.6 % (3.0-13.0); NEUTROPHILS % (AUTO) 48.3 % (40.0-77.0); PLATELET COUNT (AUTO) 356 K/uL (130-400); RED CELL DISTRIBUTION WIDTH 13.2 % (11.0-15.5); WHITE BLOOD COUNT (AUTO) 7.3 K/uL (4.8-10.8)
[2020-08-21 20:09] LABS: CREATININE 1.1 mg/dL (0.5-1.5); POTASSIUM 3.7 mmol/L (3.5-5.1)
[2020-08-21 20:13] LABS: ALBUMIN 3.6 g/dL (3.5-5.0); BILIRUBIN,TOTAL 0.2 mg/dL (0.2-1.0); TOTAL PROTEIN, SERUM 7.5 g/dL (6.0-8.3)
[2020-08-21 20:13] LABS: APPEARANCE,URINE Clear (CLEAR); BILIRUBIN,URINE Negative (NEGATIVE); COLOR,URINE Yellow (YELLOW); GLUCOSE, URINE (UA) Negative (NEGATIVE); KETONES,URINE Negative (NEGATIVE); LEUKOCYTE ESTERASE ,URINE Large (NEGATIVE); NITRATE,URINE Negative (NEGATIVE); OCCULT BLOOD,URINE Large (NEGATIVE); PH,URINE 6.5 (5.0-8.0); PROTEIN,URINE POS 2+ mg/dL (NEGATIVE); UROBILINOGEN,URINE 0.2 mg/dL (0.2-1.0)
[2020-08-21 20:21] LABS: BACTERIA,URINE Rare /HPF (None Seen); YEAST,URINE BUDDING Few /HPF (None Seen)
[2020-08-21 20:22] LABS: SQUAMOUS EPITHELIAL CELL,UR Few /HPF (0-2); TRANSITIONAL EPI CELLS,URINE Few /HPF (None Seen)
[2020-08-22] MEDS ORDERED: TRAM-355 PO (06:24)
[2020-08-22] MEDS ORDERED: ONDA4TAB10 PO (06:26)
[2020-08-22] MEDS ORDERED: PROM25TA7 PO (07:36)
== END 2020-08-21 22:07 | disposition left against medical advice (07) ==
LOC: EDH 18:57
DX: R10.9 Unspecified abdominal pain (principal); Z53.21 Procedure and treatment not carried out due to patient leaving prior to being seen by health care provider
CPT/HCPCS: 36415; 80053; 81001; 85025; 87088

== ENCOUNTER 2020-08-22 01:48 | Emergency (ER) | payer MEDICAID ==
[~2020-08-22] VITALS: Ht 152.4 cm; Wt 59.0 kg
[2020-08-22 01:57] VITALS: BP 154/75
[2020-08-22 02:09] LABS: BASOPHILS % (AUTO) 1.1 % (0.0-5.0); EOSINOPHILS % (AUTO) 4.8 % (0.0-8.0); HEMATOCRIT 39.2 % (36-48); LYMPHOCYTES % (AUTO) 38.9 % (21.0-51.0); MEAN CORPUSCULAR HEMOGLOBIN 30.6 pg (27.0-33.0); MEAN CORPUSCULAR HGB CONC 32.9 g/dL (32.0-36.0); MEAN CORPUSCULAR VOLUME 93.1 fL (79-99); MONOCYTES % (AUTO) 7.6 % (3.0-13.0); NEUTROPHILS % (AUTO) 47.5 % (40.0-77.0); PLATELET COUNT (AUTO) 367 K/uL (130-400); RED BLOOD CELL COUNT(AUTO) 4.21 MIL/uL (4.00-5.50); RED CELL DISTRIBUTION WIDTH 13.3 % (11.0-15.5); WHITE BLOOD COUNT (AUTO) 7.5 K/uL (4.8-10.8)
[2020-08-22 02:17] LABS: CREATININE 1.1 mg/dL (0.5-1.5); POTASSIUM 3.5 mmol/L (3.5-5.1)
[2020-08-22 02:22] LABS: ALBUMIN 3.8 g/dL (3.5-5.0); BILIRUBIN,TOTAL 0.2 mg/dL (0.2-1.0); TOTAL PROTEIN, SERUM 7.9 g/dL (6.0-8.3)
[2020-08-22] MEDS ORDERED: ONDANSETRON 4MG INJ IVP ONE (02:30)
[2020-08-22] MEDS ORDERED: MORPHINE 4 MG SYG IM ONE (02:30)
[2020-08-22 03:35] VITALS: BP 138/71
[2020-08-22 03:41] LABS: APPEARANCE,URINE Clear (CLEAR); BILIRUBIN,URINE Negative (NEGATIVE); COLOR,URINE Yellow (YELLOW); GLUCOSE, URINE (UA) Negative (NEGATIVE); KETONES,URINE Negative (NEGATIVE); LEUKOCYTE ESTERASE ,URINE Large (NEGATIVE); NITRATE,URINE Negative (NEGATIVE); OCCULT BLOOD,URINE Negative (NEGATIVE); PROTEIN,URINE Negative (NEGATIVE); UROBILINOGEN,URINE 0.2 mg/dL (0.2-1.0)
[2020-08-22 03:52] LABS: BACTERIA,URINE Rare /HPF (None Seen); RBC,URINE 0-1 /HPF (0-1); SQUAMOUS EPITHELIAL CELL,UR Few /HPF (0-2); YEAST,URINE BUDDING Rare /HPF (None Seen)
[2020-08-22] MEDS ORDERED: KETOROLAC 30MG VIAL (30MG/ML) IV ONE (05:00)
[2020-08-22] MEDS ORDERED: 0.9% NACL 500ML IV.SOLN 456 ML IV ONE (05:00)
[2020-08-22] MEDS ORDERED: KETOROLAC 30MG VIAL (30MG/ML) ONE (05:09)
[2020-08-22] MEDS ORDERED: 0.9% NACL 500ML IV.SOLN 500 ML IV ONE (05:32)
[2020-08-22] MEDS ORDERED: TRAM-355 PO (06:24)
[2020-08-22] MEDS ORDERED: ONDA4TAB10 PO (06:26)
[2020-08-22] MEDS ORDERED: PROM25TA7 PO (07:36)
== END 2020-08-22 08:11 | disposition home or self-care (01) ==
LOC: EDH 01:48
DX: N20.0 Calculus of kidney (principal); N30.90 Cystitis, unspecified without hematuria; I10 Essential (primary) hypertension; M19.90 Unspecified osteoarthritis, unspecified site; Z88.1 Allergy status to other antibiotic agents; Z88.2 Allergy status to sulfonamides; Z79.899 Other long term (current) drug therapy
CPT/HCPCS: 36415; 74176; 76770; 80053; 85025; 96361 ×2; 96372; 96374; 96375; 99285; J1885; J2270; J2405; J7040

== ENCOUNTER → 2020-08-25 | Outpatient (CLI) | payer MEDICAID ==
[~2020-08-25] MED LIST changes: +ONDA4TAB10 PO; +PROM25TA7 PO; +TRAM-355 PO
== END | disposition home or self-care (01) ==
LOC: RAH 15:45
PROVIDERS: ATTEND Urology
DX: N20.2 Calculus of kidney with calculus of ureter (principal); Z93.6 Other artificial openings of urinary tract status
CPT/HCPCS: 74018; 76100

== ENCOUNTER 2020-08-28 18:39 | Emergency (ER) | payer MEDICAID ==
[~2020-08-28] VITALS: Ht 149.9 cm; Wt 61.2 kg
[2020-08-28 20:30] VITALS: BP 124/74
== END 2020-08-28 21:13 | disposition home or self-care (01) ==
LOC: EDH 18:39
DX: T83.092A Other mechanical complication of nephrostomy catheter, initial encounter (principal); Z79.1 Long term (current) use of non-steroidal anti-inflammatories (NSAID); Z79.899 Other long term (current) drug therapy; Z88.1 Allergy status to other antibiotic agents; Z88.2 Allergy status to sulfonamides; Z87.442 Personal history of urinary calculi; Y84.8 Other medical procedures as the cause of abnormal reaction of the patient, or of later complication, without mention of misadventure at the time of the procedure
CPT/HCPCS: 99281

== ENCOUNTER → 2020-08-30 | Outpatient (CLI) | payer MEDICAID | END | disposition home or self-care (01) | LOC: RAH 10:00 | PROVIDERS: ATTEND Urology | DX: N20.2 Calculus of kidney with calculus of ureter (principal); K59.09 Other constipation; Z93.6 Other artificial openings of urinary tract status | CPT/HCPCS: 74018; 76100 ==

== ENCOUNTER 2020-09-05 08:08 | Day surgery (SDC) | payer MEDICAID ==
[2020-08-30 14:21] LABS: BASOPHILS % (AUTO) 0.6 % (0.0-5.0); EOSINOPHILS % (AUTO) 5.8 % (0.0-8.0); HEMATOCRIT 39.1 % (36-48); MEAN CORPUSCULAR HGB CONC 32.2 g/dL (32.0-36.0); MEAN CORPUSCULAR VOLUME 96.1 fL (79-99); MONOCYTES % (AUTO) 6.7 % (3.0-13.0); NEUTROPHILS % (AUTO) 58.6 % (40.0-77.0); PLATELET COUNT (AUTO) 251 K/uL (130-400); RED BLOOD CELL COUNT(AUTO) 4.07 MIL/uL (4.00-5.50); RED CELL DISTRIBUTION WIDTH 14.1 % (11.0-15.5); WHITE BLOOD COUNT (AUTO) 6.9 K/uL (4.8-10.8)
[2020-08-30 14:32] LABS: CREATININE 1.2 mg/dL (0.5-1.5); POTASSIUM 4.2 mmol/L (3.5-5.1)
[2020-08-30 14:33] LABS: INR 0.97 (0.85-1.15); PROTHROMBIN TIME 10.6 SEC (9.6-11.6)
[2020-08-30 14:35] LABS: PARTIAL THROMBOPLASTIN TIME 26.2 SEC (26.3-35.5)
[2020-09-04 15:11] VITALS: BP 123/77
[~2020-09-05] VITALS: Ht 149.9 cm; Wt 61.4 kg
[2020-09-05 08:05] VITALS: BP 142/85
[2020-09-05] MEDS ORDERED: 0.9%NACL 1000ML 1,000 ML IV ONE (08:53)
[2020-09-05] MEDS ORDERED: LIDOCAINE HCL 1% MDV 50ML VIAL ONE (11:27)
[2020-09-05] MEDS ORDERED: IODIXANOL 320 MG/ML 100 ML VIAL ONE (11:27)
[2020-09-05 12:20] VITALS: BP 139/90
== END 2020-09-05 12:45 | disposition home or self-care (01) ==
LOC: DAH 08:08
PROVIDERS: ATTEND Urology
DX: N20.0 Calculus of kidney (principal); Z20.822 Contact with and (suspected) exposure to COVID-19; Z79.01 Long term (current) use of anticoagulants; Z90.49 Acquired absence of other specified parts of digestive tract; Z98.51 Tubal ligation status; Z98.890 Other specified postprocedural states
CPT/HCPCS: 36415; 50431; 80048; 85025; 85610; 85730; A4215; A4216; A4221; A4222; A4223 ×3; A4606; A4663; J1644; J3490 ×2; J7030; Q9967

== ENCOUNTER 2020-10-06 08:43 | Emergency (ER) | payer MEDICAID ==
[~2020-10-06] VITALS: Ht 149.9 cm; Wt 63.5 kg
[2020-10-06 09:17] LABS: BASOPHILS % (AUTO) 0.6 % (0.0-5.0); EOSINOPHILS % (AUTO) 4.8 % (0.0-8.0); HEMATOCRIT 36.4 % (36-48); LYMPHOCYTES % (AUTO) 26.6 % (21.0-51.0); MEAN CORPUSCULAR HEMOGLOBIN 31.6 pg (27.0-33.0); MEAN CORPUSCULAR HGB CONC 32.1 g/dL (32.0-36.0); MEAN CORPUSCULAR VOLUME 98.4 fL (79-99); MONOCYTES % (AUTO) 8.2 % (3.0-13.0); NEUTROPHILS % (AUTO) 59.5 % (40.0-77.0); PLATELET COUNT (AUTO) 248 K/uL (130-400); WHITE BLOOD COUNT (AUTO) 6.7 K/uL (4.8-10.8)
[2020-10-06 09:38] LABS: CREATININE 0.8 mg/dL (0.5-1.5); POTASSIUM 5.3 mmol/L (3.5-5.1)
[2020-10-06 09:44] LABS: ALBUMIN 3.4 g/dL (3.5-5.0); BILIRUBIN,TOTAL 0.4 mg/dL (0.2-1.0); TOTAL PROTEIN, SERUM 7.3 g/dL (6.0-8.3)
[2020-10-06 09:53] LABS: BILIRUBIN,URINE NEGATIVE (NEGATIVE); COLOR,URINE YELLOW (YELLOW); GLUCOSE, URINE (UA) NEGATIVE (NEGATIVE); KETONES,URINE NEGATIVE (NEGATIVE); LEUKOCYTE ESTERASE ,URINE LARGE (NEGATIVE); NITRATE,URINE NEGATIVE (NEGATIVE); OCCULT BLOOD,URINE LARGE (NEGATIVE); PROTEIN,URINE TRACE mg/dL (NEGATIVE); UROBILINOGEN,URINE 0.2 mg/dL (0.2-1.0)
[2020-10-06 09:54] VITALS: BP 136/78
[2020-10-06 09:58] LABS: APPEARANCE,URINE CLOUDY (CLEAR)
[2020-10-06] MEDS ORDERED: PROCHLORPERAZINE EDISYLATE 5 MG/ML 2 ML VIAL IVP SCH (10:00)
[2020-10-06] MEDS ORDERED: 0.9%NACL 1000ML 1,000 ML IV SCH (10:00)
[2020-10-06 10:19] LABS: BACTERIA,URINE Few /HPF (None Seen); SQUAMOUS EPITHELIAL CELL,UR 0-2 /HPF (0-2)
[2020-10-06] MEDS ORDERED: PROCHLORPERAZINE 10MG/2ML INJ ONE (10:30)
[2020-10-06] MEDS ORDERED: HYDROCODONE/ACETAMINOPHEN 5/325 MG TAB PO SCH (10:30)
[2020-10-06 12:46] VITALS: BP 115/70
[2020-10-06] MEDS ORDERED: CEPH500B PO (14:21)
[2020-10-06 15:06] VITALS: BP 111/62
== END 2020-10-06 15:07 | disposition home or self-care (01) ==
LOC: EDH 08:43
DX: T83.092A Other mechanical complication of nephrostomy catheter, initial encounter (principal); Z79.1 Long term (current) use of non-steroidal anti-inflammatories (NSAID); Z79.899 Other long term (current) drug therapy; Z87.442 Personal history of urinary calculi; Z88.1 Allergy status to other antibiotic agents; Z88.2 Allergy status to sulfonamides; Z90.49 Acquired absence of other specified parts of digestive tract; Y83.8 Other surgical procedures as the cause of abnormal reaction of the patient, or of later complication, without mention of misadventure at the time of the procedure; Y92.89 Other specified places as the place of occurrence of the external cause
CPT/HCPCS: 36415; 74176; 80053; 81001; 82150; 83690; 85025; 87088; 96361; 96374; 99285; J0780; J7030

== ENCOUNTER 2020-10-20 08:18 | Day surgery (SDC) | payer MEDICAID ==
[2020-10-17 17:48] LABS: BASOPHILS % (AUTO) 0.8 % (0.0-5.0); EOSINOPHILS % (AUTO) 4.5 % (0.0-8.0); HEMATOCRIT 38.8 % (36-48); LYMPHOCYTES % (AUTO) 27.2 % (21.0-51.0); MEAN CORPUSCULAR HEMOGLOBIN 32.5 pg (27.0-33.0); MEAN CORPUSCULAR HGB CONC 32.7 g/dL (32.0-36.0); MEAN CORPUSCULAR VOLUME 99.2 fL (79-99); MONOCYTES % (AUTO) 8.1 % (3.0-13.0); NEUTROPHILS % (AUTO) 59.1 % (40.0-77.0); PLATELET COUNT (AUTO) 328 K/uL (130-400); RED BLOOD CELL COUNT(AUTO) 3.91 MIL/uL (4.00-5.50); RED CELL DISTRIBUTION WIDTH 14.1 % (11.0-15.5); WHITE BLOOD COUNT (AUTO) 7.2 K/uL (4.8-10.8)
[2020-10-17 18:08] LABS: INR 2.33 (0.85-1.15); PROTHROMBIN TIME 23.5 SEC (9.6-11.6)
[2020-10-17 18:09] LABS: PARTIAL THROMBOPLASTIN TIME 44.2 SEC (26.3-35.5)
[~2020-10-20 08:18] MED LIST changes: +CEPH500B PO
[2020-10-20 08:51] LABS: INR 0.99 (0.85-1.15); PROTHROMBIN TIME 10.8 SEC (9.6-11.6)
[2020-10-20 08:53] LABS: PARTIAL THROMBOPLASTIN TIME 27.8 SEC (26.3-35.5)
[2020-10-20] MEDS ORDERED: LIDOCAINE HCL 1% MDV 50ML VIAL ONE (09:30)
[2020-10-20] MEDS ORDERED: IOHEXOL-350 50ML VIAL IV ONE (09:30)
[2020-10-20] MEDS ORDERED: FENTANYL CITRATE PF 50 MCG/1 ML 2ML VIAL ONE (09:55)
[2020-10-20] MEDS ORDERED: MIDAZOLAM HCL 1 MG/ML 2ML VIAL ONE (09:55)
[2020-10-20] MEDS ORDERED: 0.9%NACL 1000ML 1,000 ML IV ONE (11:35)
== END 2020-10-20 11:27 | disposition home or self-care (01) ==
LOC: DAH 08:18
PROVIDERS: ATTEND Urology
DX: Z43.6 Encounter for attention to other artificial openings of urinary tract (principal); N20.2 Calculus of kidney with calculus of ureter; Z88.1 Allergy status to other antibiotic agents; Z90.49 Acquired absence of other specified parts of digestive tract; Z98.51 Tubal ligation status; Z79.01 Long term (current) use of anticoagulants; Z79.899 Other long term (current) drug therapy
CPT/HCPCS: 36415 ×2; 50431; 80048; 85025; 85610 ×2; 85730 ×2; A4215; A4221; A4222; A4223; A4663; A6260; C1769; J1644; J3010; J3490 ×2; J7030; J2250; Q9967

== ENCOUNTER → 2021-06-08 | Outpatient (CLI) | payer MEDICAID ==
[~2021-06-08] MED LIST changes: +ACET-2079 PO; -ACET1TAB25 PO
== END ==
LOC: RAH 10:52
PROVIDERS: ATTEND Nurse Practitioner Family
DX: Z12.31 Encounter for screening mammogram for malignant neoplasm of breast (principal)
CPT/HCPCS: 77067

== ENCOUNTER 2021-12-18 05:30 | Day surgery (SDC) | payer MEDICAID ==
[2021-12-17 15:50] LABS: BASOPHILS % (AUTO) 1.1 % (0.0-5.0); HEMATOCRIT 39.4 % (36-48); LYMPHOCYTES % (AUTO) 34.1 % (21.0-51.0); MEAN CORPUSCULAR HEMOGLOBIN 31.8 pg (27.0-33.0); MEAN CORPUSCULAR VOLUME 96.3 fL (79-99); MONOCYTES % (AUTO) 7.3 % (3.0-13.0); NEUTROPHILS % (AUTO) 52.2 % (40.0-77.0); PLATELET COUNT (AUTO) 287 K/uL (130-400); RED BLOOD CELL COUNT(AUTO) 4.09 MIL/uL (4.00-5.50); RED CELL DISTRIBUTION WIDTH 12.2 % (11.0-15.5); WHITE BLOOD COUNT (AUTO) 7.6 K/uL (4.8-10.8)
[2021-12-17 15:55] LABS: APPEARANCE,URINE CLEAR (CLEAR); BILIRUBIN,URINE NEGATIVE (NEGATIVE); COLOR,URINE COLORLESS (YELLOW); GLUCOSE, URINE (UA) NEGATIVE (NEGATIVE); KETONES,URINE NEGATIVE (NEGATIVE); LEUKOCYTE ESTERASE ,URINE 75 Leu/uL (NEGATIVE); NITRATE,URINE NEGATIVE (NEGATIVE); OCCULT BLOOD,URINE NEGATIVE (NEGATIVE); PH,URINE 6.5 (5.0-8.0); PROTEIN,URINE NEGATIVE (NEGATIVE); UROBILINOGEN,URINE 0.2 mg/dL (0.2-1.0)
[2021-12-17 15:58] LABS: INR 0.93 (0.85-1.15); PROTHROMBIN TIME 10.1 SEC (9.6-11.6)
[2021-12-17 16:05] LABS: RBC,URINE 0-1 /HPF (0-1); SQUAMOUS EPITHELIAL CELL,UR RARE /HPF (0-2)
[2021-12-17 17:40] VITALS: BP 158/90
[~2021-12-18] VITALS: Ht 152.4 cm; Wt 32.7 kg
[2021-12-18] VITALS (17 sets, daily range): BP systolic 124–159; BP diastolic 77–92
[~2021-12-18 05:30] MED LIST changes: -ACET-2079 PO; -CEPH500B PO; +GABA100C PO; +HYDR-4068 PO; -IBUP-2077 PO; -IRON-15 PO; +LOSA50TA64 PO; +MAGN500C4 PO; -MELO-108 PO; +MIRA50TA PO; +NAPR-1023 PO; -ONDA-104 PO; -ONDA4TAB10 PO; +ONDA8TAB12 PO; -OXYB5TAB15 PO; -PROM25TA7 PO; -TRAM-355 PO; +ZOLP10TA2 PO
[2021-12-18] MEDS ORDERED: LACTATED RINGERS 1000ML 1,000 ML IV ONE (06:12)
[2021-12-18] MEDS ORDERED: PROPOFOL 10 MG/ML 20ML VIAL IV ONE (06:56)
[2021-12-18] MEDS ORDERED: FENTANYL CITRATE PF 50 MCG/1 ML 2ML VIAL ONE (06:56)
[2021-12-18] MEDS ORDERED: MIDAZOLAM HCL 1 MG/ML 2ML VIAL ONE (06:56)
[2021-12-18] MEDS ORDERED: ROCURONIUM 10MG/1ML SYR 10 MG/ML ML ONE (07:04)
== END 2021-12-18 09:45 | disposition home or self-care (01) ==
LOC: DAH 05:30
PROVIDERS: ATTEND Obstetrics & Gynecology
DX: N95.0 Postmenopausal bleeding (principal); Z20.822 Contact with and (suspected) exposure to COVID-19; N84.0 Polyp of corpus uteri; N88.2 Stricture and stenosis of cervix uteri; N81.11 Cystocele, midline; N95.2 Postmenopausal atrophic vaginitis; D50.0 Iron deficiency anemia secondary to blood loss (chronic); M06.9 Rheumatoid arthritis, unspecified; E66.01 Morbid (severe) obesity due to excess calories; G43.909 Migraine, unspecified, not intractable, without status migrainosus; Z98.51 Tubal ligation status; Z90.49 Acquired absence of other specified parts of digestive tract; Z98.890 Other specified postprocedural states; Z82.49 Family history of ischemic heart disease and other diseases of the circulatory system; Z72.89 Other problems related to lifestyle; Z79.899 Other long term (current) drug therapy; Z79.01 Long term (current) use of anticoagulants; Z68.33 Body mass index [BMI] 33.0-33.9, adult
CPT/HCPCS: 84703; 85025; 85610; 85730; 86850; 86900; 86901; 87088; 87426; 81001; 36415; 58558; A4663 ×2; J7030; A4351; J7120; J3010; J2250; J3490; A4215; A4223; A4222; A4221; A4335 ×2; J2704

== ENCOUNTER 2022-05-21 05:35 | Observation (INO) | payer MEDICAID ==
[2022-05-17 12:32] LABS: EOSINOPHILS % (AUTO) 1.9 % (0.0-8.0); HEMATOCRIT 41.6 % (36-48); LYMPHOCYTES % (AUTO) 19.4 % (21.0-51.0); MEAN CORPUSCULAR HEMOGLOBIN 32.5 pg (27.0-33.0); MEAN CORPUSCULAR HGB CONC 33.2 g/dL (32.0-36.0); MEAN CORPUSCULAR VOLUME 97.9 fL (79-99); MONOCYTES % (AUTO) 6.7 % (3.0-13.0); NEUTROPHILS % (AUTO) 70.7 % (40.0-77.0); PLATELET COUNT (AUTO) 355 K/uL (130-400); RED BLOOD CELL COUNT(AUTO) 4.25 MIL/uL (4.00-5.50); RED CELL DISTRIBUTION WIDTH 12.8 % (11.0-15.5); WHITE BLOOD COUNT (AUTO) 10.3 K/uL (4.8-10.8)
[2022-05-17 12:39] VITALS: BP 145/87
[2022-05-17 13:20] LABS: APPEARANCE,URINE CLOUDY (CLEAR); BILIRUBIN,URINE NEGATIVE (NEGATIVE); COLOR,URINE LIGHT-YELLOW (YELLOW); GLUCOSE, URINE (UA) NEGATIVE (NEGATIVE); KETONES,URINE NEGATIVE (NEGATIVE); LEUKOCYTE ESTERASE ,URINE 25 Leu/uL (NEGATIVE); NITRATE,URINE NEGATIVE (NEGATIVE); OCCULT BLOOD,URINE LARGE (NEGATIVE); PH,URINE 6.5 (5.0-8.0); PROTEIN,URINE NEGATIVE (NEGATIVE); UROBILINOGEN,URINE 0.2 mg/dL (0.2-1.0)
[2022-05-17 13:45] LABS: RBC,URINE 0-1 /HPF (0-1)
[~2022-05-21] VITALS: Ht 149.9 cm; Wt 74.8 kg
[2022-05-21] VITALS (24 sets, daily range): BP systolic 108–152; BP diastolic 66–98
[~2022-05-21 05:35] MED LIST changes: +DICL75TA5 PO; +ESTR-6 PO; -GABA100C PO; +GABA300C PO; -HYDR-4068 PO; +LINA145C PO; -MAGN500C4 PO; -NAPR-1023 PO; +OMEP40CA21 PO; +QUIN324C10 PO; +TIZA-194 PO; +TRAM-355 PO
[2022-05-21] MEDS ORDERED: CEFAZOLIN SODIUM 1 GM VIAL IVPB SCH (06:00)
[2022-05-21] MEDS ORDERED: LACTATED RINGERS 1000ML 1,000 ML IV ONE (06:35)
[2022-05-21] MEDS ORDERED: MIDAZOLAM HCL 1 MG/ML 2ML VIAL ONE (08:34)
[2022-05-21] MEDS ORDERED: FENTANYL CITRATE PF 50 MCG/1 ML 2ML VIAL ONE ×3 (08:34→10:33)
[2022-05-21] MEDS ORDERED: LIDOCAINE HCL MPF 1% 5ML VIAL ONE (08:34)
[2022-05-21] MEDS ORDERED: PROPOFOL 10 MG/ML 20ML VIAL IV ONE (08:34)
[2022-05-21] MEDS ORDERED: DEXAMETHASONE SOD PHOSPHATE 4 MG/ML 1ML VIAL ONE (09:08)
[2022-05-21] MEDS ORDERED: ONDANSETRON 4MG INJ ONE (09:08)
[2022-05-21] MEDS ORDERED: GLYCOPYRROLATE 1 MG/5 ML SYRINGE ONE (09:59)
[2022-05-21] MEDS ORDERED: NEOSTIGMINE 5MG/5ML SYR IV ONE (09:59)
[2022-05-21] MEDS ORDERED: MEPERIDINE-PF 25 MG/ML SYG ONE ×2 (10:21→10:47)
[2022-05-21] MEDS ORDERED: ONDANSETRON 4MG INJ IVP PRN (11:30)
[2022-05-21] MEDS ORDERED: ACETAMINOPHEN WITH CODEINE 1 TAB TAB PO PRN (11:30)
[2022-05-21] MEDS ORDERED: BISACODYL 10 MG SUPP.RECT RC PRN (11:30)
[2022-05-21] MEDS ORDERED: PROMETHAZINE HCL 25 MG/ML 1ML AMPULE IM PRN (11:30)
[2022-05-21] MEDS ORDERED: SIMETHICONE 80 MG TAB.CHEW PO PRN (11:30)
[2022-05-21] MEDS ORDERED: IBUPROFEN 600 MG TABLET PO PRN (11:30)
[2022-05-21] MEDS: DEXTROSE 5 %-0.45 % NACL 1,000 ML IV SCH ×2 (11:30→18:48)
[2022-05-21] MEDS: PROMETHAZINE HCL 25 MG/ML 1ML AMPULE IM PRN ×2 (15:07→20:14)
[2022-05-21] MEDS: MEPERIDINE-PF 75 MG/ML SYG IM PRN ×2 (15:07→20:14)
[2022-05-21] MEDS: DOCUSATE SODIUM 100 MG CAP PO PRN (20:14)
[2022-05-22] MEDS: DEXTROSE 5 %-0.45 % NACL 1,000 ML IV SCH (02:32)
[2022-05-22 02:43] VITALS: BP 118/71
[2022-05-22] MEDS ORDERED: SIMETHICONE 80 MG TAB.CHEW PO PRN (06:00)
[2022-05-22] MEDS ORDERED: IBUPROFEN 800 MG TAB PO PRN (06:00)
[2022-05-22] MEDS ORDERED: HYDROCODONE/ACETAMINOPHEN 5/325 MG TAB PO PRN (06:00)
[2022-05-22] MEDS ORDERED: BISACODYL 10 MG SUPP.RECT RC PRN (06:00)
[2022-05-22] MEDS ORDERED: ACETAMINOPHEN WITH CODEINE 1 TAB TAB PO PRN (06:00)
[2022-05-22] MEDS ORDERED: DOCUSATE SODIUM 100 MG CAP PO PRN (06:00)
[2022-05-22 06:11] LABS: HEMATOCRIT 34.6 % (36-48); MEAN CORPUSCULAR HEMOGLOBIN 32.2 pg (27.0-33.0); MEAN CORPUSCULAR HGB CONC 32.4 g/dL (32.0-36.0); MEAN CORPUSCULAR VOLUME 99.4 fL (79-99); RED BLOOD CELL COUNT(AUTO) 3.48 MIL/uL (4.00-5.50); RED CELL DISTRIBUTION WIDTH 12.5 % (11.0-15.5); WHITE BLOOD COUNT (AUTO) 12.2 K/uL (4.8-10.8)
[2022-05-22 07:37] VITALS: BP 116/75
[2022-05-22] MEDS: DOCUSATE SODIUM 100 MG CAP PO PRN (08:14)
[2022-05-22] MEDS ORDERED: ACET-2079 PO (10:27)
[2022-05-22] MEDS ORDERED: IBUP-1493 PO (10:28)
== END 2022-05-22 10:50 | disposition home or self-care (01) ==
LOC: DAH 05:35 → DAHIP 05:36 → WSH 11:05
PROVIDERS: ADMIT Obstetrics & Gynecology; ATTEND Obstetrics & Gynecology
DX: D25.9 Leiomyoma of uterus, unspecified (principal); Z20.822 Contact with and (suspected) exposure to COVID-19; K46.9 Unspecified abdominal hernia without obstruction or gangrene; N92.1 Excessive and frequent menstruation with irregular cycle; I10 Essential (primary) hypertension; K21.9 Gastro-esophageal reflux disease without esophagitis; Z79.899 Other long term (current) drug therapy
CPT/HCPCS: 84703; 85025; 86850 ×2; 86900 ×2; 86901 ×2; 87426; 81001; 36415 ×3; 58263; 96372; 85027; A6260; G0378 ×17; A4663; J7120 ×2; A4351; A4606; J3010 ×3; J0690; J3490 ×3; J2710; J2550 ×2; J2250; J2405; J1100; J2175 ×4; A4649; A4215; A4223; A4222; A4221; J2704

== ENCOUNTER 2022-12-25 19:28 | Emergency (ER) | payer MEDICARE ==
[~2022-12-25 19:28] MED LIST changes: +ACET-2079 PO; +IBUP-1493 PO
== END 2022-12-25 21:47 | disposition left against medical advice (07) ==
LOC: EDH 19:28
DX: R51.9 Headache, unspecified (principal); Z53.21 Procedure and treatment not carried out due to patient leaving prior to being seen by health care provider

== ENCOUNTER 2022-12-29 11:50 | Emergency (ER) | payer MEDICARE ==
[~2022-12-29] VITALS: Ht 149.9 cm; Wt 78.5 kg
[2022-12-29 12:31] VITALS: BP 124/71; PULSE 131; RESP 20
[2022-12-29 13:32] LABS: APPEARANCE,URINE CLEAR (CLEAR); BILIRUBIN,URINE NEGATIVE (NEGATIVE); COLOR,URINE COLORLESS (YELLOW); GLUCOSE, URINE (UA) NEGATIVE (NEGATIVE); KETONES,URINE NEGATIVE (NEGATIVE); LEUKOCYTE ESTERASE ,URINE NEGATIVE Leu/uL (NEGATIVE); NITRATE,URINE NEGATIVE (NEGATIVE); OCCULT BLOOD,URINE NEGATIVE (NEGATIVE); PROTEIN,URINE NEGATIVE (NEGATIVE); UROBILINOGEN,URINE 0.2 mg/dL (0.2-1.0)
[2022-12-29 13:39] LABS: HEMATOCRIT 42.1 % (36-48); MEAN CORPUSCULAR HEMOGLOBIN 31.9 pg (27.0-33.0); MEAN CORPUSCULAR HGB CONC 35.4 g/dL (32.0-36.0); MEAN CORPUSCULAR VOLUME 90.1 fL (79-99); RED BLOOD CELL COUNT(AUTO) 4.67 MIL/uL (4.00-5.50); RED CELL DISTRIBUTION WIDTH 13.1 % (11.0-15.5); WHITE BLOOD COUNT (AUTO) 12.2 K/uL (4.8-10.8)
[2022-12-29 13:46] LABS: CREATININE 1.2 mg/dL (0.5-1.5); POTASSIUM 3.3 mmol/L (3.5-5.1)
[2022-12-29 13:57] LABS: ADD UA MICROSCOPIC NO
[2022-12-29] MEDS ORDERED: IOHEXOL 350 MG/ML 100ML INFUS..BTL IV ONE (15:31)
[2022-12-29] MEDS ORDERED: KCL 20 MEQ ERTAB PO ONE (16:30)
[2022-12-29] MEDS ORDERED: KETOROLAC 30MG VIAL (30MG/ML) ONE (17:20)
[2022-12-29] MEDS ORDERED: METOCLOPRAMIDE 10 MG/2 ML VIAL ONE (17:20)
[2022-12-29] MEDS ORDERED: DiphenhydrAMINE HCL 50 MG/ML VIAL ONE (17:20)
[2022-12-29] MEDS ORDERED: METOCLOPRAMIDE 10 MG/2 ML VIAL IVP ONE (17:30)
[2022-12-29] MEDS ORDERED: KETOROLAC 30MG VIAL (30MG/ML) IVP ONE (17:30)
[2022-12-29] MEDS ORDERED: DiphenhydrAMINE HCL 50 MG/ML VIAL IV ONE (17:30)
[2022-12-29] MEDS ORDERED: DIPH-1242 PO (18:00)
[2022-12-29] MEDS ORDERED: METO5 PO (18:00)
[2022-12-29] MEDS ORDERED: KETO10 PO (18:00)
== END 2022-12-29 18:30 | disposition home or self-care (01) ==
LOC: EDH 11:50
DX: I12.9 Hypertensive chronic kidney disease with stage 1 through stage 4 chronic kidney disease, or unspecified chronic kidney disease (principal); E11.22 Type 2 diabetes mellitus with diabetic chronic kidney disease; N18.31 Chronic kidney disease, stage 3a; R51.9 Headache, unspecified; D72.829 Elevated white blood cell count, unspecified; E87.1 Hypo-osmolality and hyponatremia; E87.6 Hypokalemia; Z79.899 Other long term (current) drug therapy; Z88.1 Allergy status to other antibiotic agents; Z88.2 Allergy status to sulfonamides; Z90.49 Acquired absence of other specified parts of digestive tract
CPT/HCPCS: 99285; 96374; 70496; 96375; 80048; 83690; 85027; 81003; 36415; J1200; J1885; J2765; Q9967

== ENCOUNTER → 2023-03-26 | Outpatient (CLI) | payer MEDICARE ==
[~2023-03-26] MED LIST changes: +DIPH-1242 PO; +KETO10 PO; +METO5 PO
== END | disposition home or self-care (01) ==
LOC: RAH 10:15
PROVIDERS: ATTEND Internal Medicine Hematology & Oncology
DX: R10.2 Pelvic and perineal pain (principal); M06.9 Rheumatoid arthritis, unspecified; R11.2 Nausea with vomiting, unspecified; Z90.710 Acquired absence of both cervix and uterus
CPT/HCPCS: 76856

== ENCOUNTER 2023-11-18 12:08 | Emergency (ER) | payer MEDICARE ==
[~2023-11-18] VITALS: Ht 149.9 cm; Wt 73.9 kg
[~2023-11-18 12:08] MED LIST changes: +ONDA-245 PO; -ONDA8TAB12 PO; -TRAM-355 PO; +TRAM-543 PO
[2023-11-18 12:09] VITALS: TEMP 98.4
[2023-11-18] MEDS: ketOROlac 60 MG VIAL (30MG/ML) IM ONE (12:56)
[2023-11-18 12:58] VITALS: BP 160/90; PULSE 96; RESP 18; O2SAT 100
[2023-11-18 13:06] LABS: BASOPHILS # (AUTO) 0.06 K/uL (0.00-0.20); BASOPHILS % (AUTO) 0.7 % (0.0-5.0); EOSINOPHILS % (AUTO) 5.6 % (0.0-8.0); HEMATOCRIT 41.2 % (36-48); IMMATURE GRANULOCYTE ABSOLUTE 0.03 K/uL (0-1); LYMPHOCYTES # (AUTO) 2.2 K/uL (1.0-4.8); LYMPHOCYTES % (AUTO) 24.7 % (21.0-51.0); MEAN CORPUSCULAR HEMOGLOBIN 31.2 pg (27.0-33.0); MEAN CORPUSCULAR HGB CONC 33.5 g/dL (32.0-36.0); MONOCYTES # (AUTO) 0.6 K/uL (0.1-1.0); MONOCYTES % (AUTO) 6.9 % (3.0-13.0); NEUTROPHILS # (AUTO) 5.6 K/uL (1.8-7.7); NEUTROPHILS % (AUTO) 61.8 % (40.0-77.0); PLATELET COUNT (AUTO) 285 K/uL (130-400); RED BLOOD CELL COUNT(AUTO) 4.43 MIL/uL (4.00-5.50); RED CELL DISTRIBUTION WIDTH 12.4 % (11.0-15.5)
[2023-11-18] MEDS: acetaMINOPHEN WITH coDEINE 1 TAB TAB PO ONE (13:08)
[2023-11-18 13:12] LABS: CREATININE 0.8 mg/dL (0.5-1.0); POTASSIUM 3.5 mmol/L (3.5-5.1)
[2023-11-18 13:15] LABS: URIC ACID 3.9 mg/dL (2.6-7.2)
[2023-11-18] MEDS ORDERED: METH4TAB3 PO (14:01)
[2023-11-18] MEDS ORDERED: IBUP-2077 PO (14:01)
== END 2023-11-18 14:36 | disposition home or self-care (01) ==
LOC: EDH 12:08
DX: M19.041 Primary osteoarthritis, right hand (principal); I10 Essential (primary) hypertension; Z79.899 Other long term (current) drug therapy; Z88.1 Allergy status to other antibiotic agents; Z88.2 Allergy status to sulfonamides; Z90.49 Acquired absence of other specified parts of digestive tract; Z98.51 Tubal ligation status
CPT/HCPCS: 99285; 93971; 84550; 80048; 85025; 36415; 96372; J1885

== ENCOUNTER → 2024-11-11 | Outpatient (CLI) | payer OTHER, MEDICARE ==
[~2024-11-11] MED LIST changes: +IBUP-2077 PO; +METH4TAB3 PO; +ZOLP-685 PO; -ZOLP10TA2 PO
--- NOTE | 2024-11-12 16:26 | HMCIMG ---
Right BREAST ULTRASOUND Patient is here for follow-up for inconclusive finding on the prior mammogram from 11/11/2024. CLINICAL HISTORY:: Finding: Real-time examination of the [right/left] breast demonstrates heterogeneous echotexture throughout the breast without evidence of focal solid or cystic masses. The right axilla has 3 small benign-appearing lymph node measuring 1.4 x 0.5 x 1.6 cm. The second lymph node measures 2.1 x 1.0 x 2.3 cm. The third lymph node measuring 1.0 x 0.6 x 0.9 cm. IMPRESSION: Moderately dense BREAST ULTRASOUND. With no evidence of lesion seen. FINAL ASSESSMENT: ACR: BI-RAD- 2. Benign: Also a negative assessment; finding(s) benign abnormalities. Management: Routine mammography screening. Likelihood of Cancer: Essentially 0% likelihood of malignancy.
--- NOTE | 2024-11-15 10:50 | HMCIMG ---
DIGITAL both breasts DIAGNOSTIC MAMMOGRAM Technique: The digital mammographic examination of bilateral breasts in craniocaudal, mediolateral oblique views along with CAD was obtained. History: This is a 54 years year-old female 6, para6 Ab0 . Patient has no family history of breast cancer. Patient has no complaint Reference:Prior mammogram from 09/20/2024 and 06/08/2021 is available.. Breast composition: Breast composition B: There are scattered areas of fibroglandular density. Finding: The digital mammographic examination of both breasts in craniocaudal and mediolateral oblique view along with CAD demonstrates mildly dense with mostly involutional fatty changes. There is focal asymmetry in the right breast as compared to the left breast. Ultrasound which was also performed demonstrate no lesion seen.. There is no evidence of any dendritic mass, cluster microcalcification or architectural distortion. The retromammary fat appears to be normal. IMPRESSION: Unchanged from prior mammography. NO RADIOGRAPHIC EVIDENCE OF MALIGNANT CHANGES. WE WOULD RECOMMEND ANNUAL FOLLOW UP WITH TOMOSYNTHESIS UNLESS OTHERWISE CLINICALLY INDICATED. FINAL ASSESSMENT: ACR: BI-RAD- 2. Benign: Also a negative assessment; finding(s) benign abnormalities. Management: Routine mammography screening. Likelihood of Cancer: Essentially 0% likelihood of malignancy. NOTE: IF A WORK-UP OF THIS PATIENT LEADS TO A BIOPSY, PLEASE FORWARD A COPY OF THE PATHOLOGY REPORT TO OUR OFFICE REQUIRED BY [employer] NOVEMBER 10, 1993. A NEGATIVE MAMMOGRAM SHOULD NOT PRECLUDE BIOPSY OF A CLINICALLY PALPABLE SUSPICIOUS MASS, 10% OF BREAST CANCERS ARE MAMMOGRAPHICALLY OCCULT. THIS MAMMOGRAPHY FACILITY IS FULLY ACCREDITED BY THE [employer]OD AND [employer] (FDA). THANK YOU FOR THIS REFERRAL.
== END | disposition home or self-care (01) ==
LOC: RAH 09:03
PROVIDERS: ATTEND Nurse Practitioner Family
DX: N64.89 Other specified disorders of breast (principal); R92.323 Mammographic fibroglandular density, bilateral breasts; R59.0 Localized enlarged lymph nodes; R92.8 Other abnormal and inconclusive findings on diagnostic imaging of breast
CPT/HCPCS: 76641; 77066